=== PATIENT | female | born 1965 | race African-American/Black ===

== ENCOUNTER 2020-09-16 11:14 | Outpatient (REF) | payer OTHER, SELFPAY ==
--- NOTE | ~2020-09-16 | XR_ITS ---
EXAMINATION: BILATERAL KNEES CLINICAL INFORMATION: Bilateral knee pain COMPARISON: There are no prior studies for comparison. TECHNIQUE: AP weightbearing and lateral and sunrise views of each knee are obtained. FINDINGS: Mineralization is normal. There is no fracture or dislocation. The right knee joint spaces appear preserved. There is mild narrowing of the medial compartment in the left knee. No significant arthritic change is appreciated. There is evidence of a left knee joint effusion. The soft tissues appear otherwise unremarkable. XR/XR knee LT 2V IMPRESSION: No fracture or dislocation in either knee. Mild joint space narrowing in the medial compartment of the left knee without associated arthritic change. Large left knee joint effusion. Clinical correlation is recommended. MRI could be considered for further evaluation if there is evidence of internal derangement.
--- NOTE | ~2020-09-16 | XR_ITS ---
EXAMINATION: BILATERAL KNEES CLINICAL INFORMATION: Bilateral knee pain COMPARISON: There are no prior studies for comparison. TECHNIQUE: AP weightbearing and lateral and sunrise views of each knee are obtained. FINDINGS: Mineralization is normal. There is no fracture or dislocation. The right knee joint spaces appear preserved. There is mild narrowing of the medial compartment in the left knee. No significant arthritic change is appreciated. There is evidence of a left knee joint effusion. The soft tissues appear otherwise unremarkable. XR/XR knee RT 2V IMPRESSION: No fracture or dislocation in either knee. Mild joint space narrowing in the medial compartment of the left knee without associated arthritic change. Large left knee joint effusion. Clinical correlation is recommended. MRI could be considered for further evaluation if there is evidence of internal derangement.
--- NOTE | ~2020-09-16 | XR_ITS ---
EXAMINATION: BILATERAL KNEES CLINICAL INFORMATION: Bilateral knee pain COMPARISON: There are no prior studies for comparison. TECHNIQUE: AP weightbearing and lateral and sunrise views of each knee are obtained. FINDINGS: Mineralization is normal. There is no fracture or dislocation. The right knee joint spaces appear preserved. There is mild narrowing of the medial compartment in the left knee. No significant arthritic change is appreciated. There is evidence of a left knee joint effusion. The soft tissues appear otherwise unremarkable. XR/XR knee standing BI IMPRESSION: No fracture or dislocation in either knee. Mild joint space narrowing in the medial compartment of the left knee without associated arthritic change. Large left knee joint effusion. Clinical correlation is recommended. MRI could be considered for further evaluation if there is evidence of internal derangement.
== END 2020-09-16 11:15 | disposition home or self-care (01) ==
LOC: HO.HOSX 11:14
PROVIDERS: PCP Family Medicine; Visit Provider Orthopaedic Surgery
DX: M25.561 Pain in right knee (principal); M25.562 Pain in left knee
CPT/HCPCS: 20610; 73560; 73565; J1100

== ENCOUNTER 2020-11-04 13:51 | Outpatient (REF) | payer OTHER, SELFPAY ==
--- NOTE | ~2020-11-04 | MR_ITS ---
EXAMINATION: MR KNEE WITHOUT CONTRAST, LEFT, LIMITED CLINICAL INDICATION: Knee pain and swelling. COMPARISON: Radiographs dated 09/16/2020 TECHNIQUE: MR images of the knee were obtained on a 1.5 Germaine high-field scanner without intravenous contrast material. The patient was claustrophobic and could not complete the examination. A single diagnostic set of axial images was obtained. The sagittal [id number] images are nondiagnostic. MR/MR knee LT wo con FINDINGS/IMPRESSION: Limited study which was terminated prior to completion by the patient due to claustrophobia. Consider reattempting this study with a prescription for anxiolytic medications. Limited axial images demonstrate diffuse synovitis throughout the joint. Recommend correlation for a history of inflammatory arthropathy. Lyme arthropathy is also on the differential. Ligaments are grossly intact, though sensitivity for injuries is limited. The menisci are not well assessed. No acute osseous findings. Tricompartmental osteoarthritis is noted.
== END 2020-11-04 13:52 | disposition home or self-care (01) ==
LOC: HO.MRI 13:51
PROVIDERS: PCP Student in an Organized Health Care Education/Training Program; Visit Provider Physician Assistant
DX: M25.462 Effusion, left knee (principal)
CPT/HCPCS: 73721

== ENCOUNTER → 2020-11-07 14:02 | Outpatient (BNVA) | payer OTHER, SELFPAY | PROVIDERS: PCP Student in an Organized Health Care Education/Training Program; Visit Provider Physician Assistant | DX: M17.0 Bilateral primary osteoarthritis of knee (principal) | CPT/HCPCS: 20610; J1040 ==

== ENCOUNTER → 2021-01-16 09:17 | Outpatient (BNVA) | payer OTHER, SELFPAY | PROVIDERS: PCP Student in an Organized Health Care Education/Training Program; Visit Provider Orthopaedic Surgery ==

== ENCOUNTER 2021-04-03 13:46 | Outpatient (REF) | payer OTHER, SELFPAY ==
[2021-04-07 10:52] LABS: Lyme PCR Source SYNOVIAL FLUID
== END 2021-04-03 13:47 | disposition home or self-care (01) ==
LOC: HO.LNP 13:46
PROVIDERS: PCP Student in an Organized Health Care Education/Training Program; Visit Provider Orthopaedic Surgery
DX: M25.462 Effusion, left knee (principal)
CPT/HCPCS: 20610; 87476; J1100

== ENCOUNTER 2021-07-17 08:00 | Outpatient (REF) | payer OTHER, SELFPAY ==
[2021-07-18 08:04] LABS: MN% 33.6 %; PMN% 66.4 %; RBC Synovial Fluid 0.005 X10*6/uL; WBC Synovial Fluid 7.068 X10*3/uL
[2021-07-18 08:23] LABS: BF Shift QC OK YES; Lymphocytes Synovial Fluid 16 %; Monocytes Synovial Fluid 7 %; Neutrophils Synovial Fluid 77 %
== END 2021-07-17 08:01 | disposition home or self-care (01) ==
LOC: HO.LNP 08:00
PROVIDERS: Visit Provider Orthopaedic Surgery
DX: M25.462 Effusion, left knee (principal)
CPT/HCPCS: 89051; 89060

== ENCOUNTER 2021-07-17 09:03 | Outpatient (REF) | payer OTHER, SELFPAY ==
--- NOTE | ~2021-07-17 | XR_ITS ---
EXAMINATION: XR KNEE AP STANDING XR KNEE, LEFT CLINICAL INFORMATION: Pain. COMPARISON: MRI left knee dated 11/05/2020; bilateral knee radiographs dated 07/17/2020. TECHNIQUE: AP bilateral standing view of the knees was obtained. A lateral view of the left knee was obtained. FINDINGS: Bony mineralization is normal. There are circumscribed, benign-appearing cysts seen within the bilateral medial femoral condyles. A small sclerotic, well marginated bone island is seen within the proximal left tibia. There is mild symmetric narrowing of the lateral and medial joint space compartments of the left knee, with small peripheral osteophytes. The left patellofemoral compartment is well-maintained. There is a moderately large left knee joint effusion. The lateral and medial joint space compartments of the right knee are well-maintained. There is mild peripheral osteophyte formation of the medial joint space compartment of the right knee. XR/XR knee LT 1V IMPRESSION: 1. No fracture or dislocation is seen bilaterally. 2. There is a moderately large left knee joint effusion. 3. There is mild to moderate osteoarthritic change of the lateral medial joint space compartments of the left knee. 4. There is very mild osteoarthritic change of the medial joint space compartment of the right knee.
--- NOTE | ~2021-07-17 | XR_ITS ---
EXAMINATION: XR KNEE AP STANDING XR KNEE, LEFT CLINICAL INFORMATION: Pain. COMPARISON: MRI left knee dated 11/05/2020; bilateral knee radiographs dated 07/17/2020. TECHNIQUE: AP bilateral standing view of the knees was obtained. A lateral view of the left knee was obtained. FINDINGS: Bony mineralization is normal. There are circumscribed, benign-appearing cysts seen within the bilateral medial femoral condyles. A small sclerotic, well marginated bone island is seen within the proximal left tibia. There is mild symmetric narrowing of the lateral and medial joint space compartments of the left knee, with small peripheral osteophytes. The left patellofemoral compartment is well-maintained. There is a moderately large left knee joint effusion. The lateral and medial joint space compartments of the right knee are well-maintained. There is mild peripheral osteophyte formation of the medial joint space compartment of the right knee. XR/XR knee standing BI IMPRESSION: 1. No fracture or dislocation is seen bilaterally. 2. There is a moderately large left knee joint effusion. 3. There is mild to moderate osteoarthritic change of the lateral medial joint space compartments of the left knee. 4. There is very mild osteoarthritic change of the medial joint space compartment of the right knee.
== END 2021-07-17 09:04 | disposition home or self-care (01) ==
LOC: HO.HOSX 09:03
PROVIDERS: Visit Provider Orthopaedic Surgery
DX: M25.562 Pain in left knee (principal); M25.461 Effusion, right knee; M25.462 Effusion, left knee; M06.9 Rheumatoid arthritis, unspecified
CPT/HCPCS: 20610; 73560; 73565; J1100

== ENCOUNTER 2021-07-24 09:55 | Outpatient (REF) | payer OTHER, SELFPAY | END 2021-07-24 09:56 | disposition home or self-care (01) | LOC: CF 09:55 | PROVIDERS: PCP Family Medicine; Visit Provider Internal Medicine Rheumatology | DX: Z13.89 Encounter for screening for other disorder (principal) ==

== ENCOUNTER 2022-07-06 10:51 | Outpatient (REF) | payer OTHER, SELFPAY ==
[2022-07-06 12:38] LABS: MANUAL DIFF FLAG NO
[2022-07-06 13:15] LABS: Basophils Percent Auto 0.5 % (0-2); Eosinophils Absolute Auto 0.1 X10*3/uL (0.0-0.4); Eosinophils Percent Auto 2.3 % (0-4); Hematocrit 28.8 % (37.0-47.0); Hemoglobin 8.6 g/dl (12.0-16.0); Imm Gran Abs Auto 0.04 X10*3/uL (0.00-0.03); Imm Gran Pct Auto 0.7 % (0.0-0.4); Lymphocytes Absolute Auto 1.5 X10*3/uL (1.2-4.9); Lymphocytes Percent Auto 24.3 % (20-40); Mean Corpuscular HGB Conc 29.9 g/dl (31.0-35.0); Mean Corpuscular Hemoglobin 26.4 pg (27.0-33.0); Mean Corpuscular Volume 88.3 fL (80.0-98.0); Mean Platelet Volume 10.5 fL (9.4-12.3); Monocytes Absolute Auto 0.4 X10*3/uL (0.1-1.2); Monocytes Percent Auto 6.3 % (2-11); Neutrophils Percent Auto 65.9 % (45-73); Platelet Count 404 X10*3/uL (160-400); Red Blood Count 3.26 X10*6/uL (4.20-5.50); Red Cell Distribution Width 15.9 % (11.0-16.0)
[2022-07-06 13:50] LABS: Alanine Aminotransferase 6 U/L (0-31); Albumin Level 3.8 g/dL (3.5-5.0); Alkaline Phosphatase 109 U/L (39-117); Anion Gap 17 (12-20); Aspartate Amino Transferase 10 U/L (5-31); Bilirubin Total 0.5 mg/dL (0.0-1.0); Blood Urea Nitrogen 44 mg/dL (9-16); C Reactive Protein 10.03 mg/dL (< or = 0.50); Carbon Dioxide 18 mmol/L (22-29); Chloride 109 mmol/L (96-108); Estimated Glomerular Filt Rate 9; Glucose Random 99 mg/dL (60-115); Potassium 5.1 mmol/L (3.3-5.1); Sodium 139 mmol/L (135-145); Total Protein 7.9 g/dL (6.5-8.0)
[2022-07-06 14:00] LABS: Erythrocyte Sedimentation Rate 92 MM/HR (0-20)
[2022-07-08 04:23] LABS: HBS Num1 0.69 mIU/mL (0-7.99); HBc Num1 0.15 S/CO (0.00-0.79); HBsAGNum1 0.27 S/CO (0.00-0.99); Hepatitis A Antibody IgM 0.18 Index (0-0.79); Hepatitis B Core Antibody Nonreactive (Nonreactive); Hepatitis B Surface Antigen Negative (Negative); ~HepC Num1 0.18 S/CO (0.00-0.79); ~Hepatitis A Antibody IgM Nonreactive (Nonreactive); ~Hepatitis B Surface Antibody NONREACTIVE (Nonreactive); ~Hepatitis C Antibody Nonreactive (Nonreactive)
[2022-07-09 12:03] LABS: TS Negative Control Passed; TS Panel A 1; TS Panel B 0; TS Positive Control Passed; TSpotTB Negative (Negative)
== END 2022-07-06 10:52 | disposition home or self-care (01) ==
LOC: HO.LAB 10:51
PROVIDERS: PCP Family Medicine; Visit Provider Internal Medicine Rheumatology
DX: M17.5 Other unilateral secondary osteoarthritis of knee (principal); N18.5 Chronic kidney disease, stage 5; M06.9 Rheumatoid arthritis, unspecified; Z79.899 Other long term (current) drug therapy
CPT/HCPCS: 36415; 80053; 85025; 85652; 86140; 86481; 86704; 86706; 86709; 86803; 87340

== ENCOUNTER 2022-11-09 14:06 | Outpatient (AMB) | payer OTHER, SELFPAY ==
[2022-11-09 14:07] VITALS: BP 124/76; TEMP 36.6; BMI 30.2
--- NOTE | 2022-11-09 14:07 | A.OFFVIS_ITS ---
Intake Vital Signs 11/09/22 14:07 Height 5 ft 4 in Weight 175 lb 11.335 oz BMI 30.2 BP 124/76 Blood Pressure Location Lt brachial Position Sitting Temp 97.9 F Temp Source Temporal Artery Scan Intake Visit Reasons: Rheumatoid Arthritis - LVM Intake Note: Pt presents is here for a f/u for a medication she has been taking. She reports the medication is not helping but making things worse as she is now experiencing muscle spasms. Pt uis looking to get a script to refill her 650 mg acetaminophen and the Vitamin D3. Allergies acetaminophen [From Percocet] Adverse Reaction (Verified 11/09/22 14:14) unk azithromycin [From Zithromax] Adverse Reaction (Verified 11/09/22 14:14) unk cephalexin Adverse Reaction (Verified 11/09/22 14:14) unk levofloxacin [From Levaquin] Adverse Reaction (Verified 11/09/22 14:14) unk lisinopril Adverse Reaction (Verified 11/09/22 14:14) unk meperidine [From Demerol] Adverse Reaction (Verified 11/09/22 14:14) unk nitrofurantoin [From Macrobid] Adverse Reaction (Verified 11/09/22 14:14) unk oxycodone [From Percocet] Adverse Reaction (Verified 11/09/22 14:14) unk Penicillins Adverse Reaction (Verified 11/09/22 14:14) unk Sulfa (Sulfonamide Antibiotics) Adverse Reaction (Verified 11/09/22 14:14) unk Medication List - Last Reconciled 11/09/22 by Ramirez Jessica MD acetaminophen ER 650 mg PO Q8H PRN adalimumab (Humira(CF) Pen) 40 mg (0.4 mL) subcut Q2W 56 days amlodipine 5 mg PO DAILY cholecalciferol (vitamin D3) 50 mcg PO DAILY fluticasone propionate 50 mcg/actuation 1 spray intranasal DAILY PRN labetalol 300 mg PO BID lidocaine 5% 1 topical BID PRN loratadine 10 mg PO DAILY PRN omeprazole 20 mg PO BID sodium bicarbonate 1,300 mg PO BID HPI HPI Comments History of Present Illness Details The patient returns today for evaluation of her rheumatoid arthritis and osteoarthritis. We were able to get approval and she has been on Humira 40 mg every 2 weeks since June. Initially she does not really describe much pain outside of her knees. She does note pain in those joints but she seems to tolerate it better than the knee pain. She said a significant problem with the left knee. Some days she can barely stand up. She still is working although she has missed work because of the problems with walking. 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 She has to take the stairs to do that. She brings in FMLA form today. She also has severe kidney failure. She has not seen nephrology recently. She is on still some blood pressure medicines. She was in the ER on September 26 with some diarrhea and some lab work was done. She had decided against early placement of an AV fistula. She has been experiencing painful muscle spasm particularly in the left leg. This is over the thigh region. This is surrounding the joint of course that gives her the most problem with walking. 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 Negative for weight change, fever, chills, malaise and fatigue Eyes Details: Negative for vision change, dry eyes,headaches and dizziness ENT Details: Negative for hearing change, tinnitus, oral ulcer, nose bleeds and oral dryness. Card Details: Negative chest pain, edema and syncope Resp Details: Negative for SOB, cough and wheezing GI Details: Negative indigestion/heartburn, nausea, abdominal pain, bowel changes, diarrhea, constipation and bloody stool. Brodie/Lymph Details: Negative for excessive bruising or bleeding. Physical Exam Vital Signs: Last Vital Signs Temp 97.9 F 11/09/22 14:07 BP 124/76 11/09/22 14:07 BMI result Body Mass Index 30.2 APPEARANCE: Patient in no acute distress EYES no redness, pupils equal and reactive to light, eyelids normal EXTREMITIES: No edema, no calf tenderness, normal peripheral pulses. JOINT EXAM: Cervical Spine:? Full range of motion without pain; no tenderness. Thoracic Spine:.? No scoliosis.? No tenderness on palpation. Lumbar Spine:.? Alignment normal.? Full range of motion without pain, no tenderness. Chest Wall:.? No tenderness, swelling, increased warmth or erythema. Hands:? Right:? There is mild soft tissue swelling and mild to moderate tenderness across? all the MCP joints.? ? There is some thickening of the 2nd through 4th PIP joints and the 3rd PIP has mild tenderness.? There is no redness or warmth.? There was no flexor tendon triggering, thenar atrophy or sensory loss.? Left:? Mild swelling? in tenderness across the 1st 3 MCP joints.? There is slight tenderness and thickening of the 2nd and 3rd PIP joints.? There is no thenar atrophy, sensory loss or flexor tendon triggering or tenderness. Wrists:.? Right: Mild pain with flexion extension at 45 degrees.? There is some mild tenderness and mild swelling but no increased warmth or erythema. Left: There is mild pain with flexion extension at 30 degrees with some swelling and mild tenderness. Elbows:? Right:? She lacks about 15 degrees of full extension there is some slight swelling and mild tenderness over the joint space.? Left: Mild pain at the extremes of motion with mild tenderness but no swelling. Shoulders:.?? right: Mild pain with abduction 135 degrees or with more than 20 degrees of internal or external rotation.? Mild anterior tenderness without swelling or adenopathy.? Left:? Mild to moderate pain with abduction at 90 degrees or with any attempted internal or external rotation.? Mild anterior, subacromial posterior tenderness without swelling.? No axillary or supraclavicular adenopathy. Hips:? Right:? Slight buttock and lateral discomfort with extremes of external rotation and abduction but no groin pain with motion.? Left:? Full range of motion without pain. Hip bursa:.? No tenderness. Knees:? Right:? Moderate pain with flexion beyond 60 degrees or attempts at full extension.? There is a small to moderate effusion present with medial and lateral tenderness but no redness or warmth.? Left:? Mild to moderate pain with flexion at 90 degrees or attempts at full extension.? There is a small effusion evident with mild medial and lateral tenderness without increased warmth or erythema. Ankles: Right:? Mild to moderate pain with AP motion and moderate pain with any attempted inversion or eversion.? There is some soft tissue swelling and moderate tenderness.? No redness or warmth.? Left:? ? Mild pain with extremes of motion and some mild medial lateral tenderness no swelling, increased warmth or erythema. Feet:? Right:? Normal pain-free range of motion with mild tenderness across the 1st 3 MTP joints.? No swelling evident however.? In the instep and toes there is? slight tenderness but no swelling, increased warmth or erythema.? Left:?? mild tenderness in the 1st and 2nd MTP joints without swelling. mild tenderness without swelling in the instep.? No swelling in the toes.. Tender points:? No tenderness to digital palpation at the occiput, trapezius, second rib, lateral epicondyle, knees,? ?? Results Reviewed Results Reviewed: Laboratory Tests 07/06/22 07/06/22 07/06/22 12:37 12:37 12:37 WBC 6.0 Hgb 8.6 L ESR 92 H Creatinine 4.81 H* C-Reactive Protein 10.03 H September 26 lab work from [facility] ER: Hemoglobin 8.4, hematocrit 27.4, white count 6.9, creatinine 5.9, estimated GFR 8, sodium 132, potassium 4.2, bicarbonate 17 Assessment & Plan Assessment & Plan (1) Osteoarthritis of right knee: Code(s): M17.11 - Unilateral primary osteoarthritis, right knee Qualifiers: Osteoarthritis type: other secondary Qualified Code(s): M17.5 - Other unilateral secondary osteoarthritis of knee (2) Osteoarthritis of left knee: Code(s): M17.12 - Unilateral primary osteoarthritis, left knee Qualifiers: Osteoarthritis type: other secondary Qualified Code(s): M17.5 - Other unilateral secondary osteoarthritis of knee (3) CKD (chronic kidney disease) stage 5, GFR less than 15 ml/min: Comment: Thought to be secondary to chronic NSAID use and or hypertension. Code(s): N18.5 - Chronic kidney disease, stage 5 (4) Rheumatoid arthritis: Comment: ELBA, RF and CCP(>250) positive - onset-2018? not showing up for follow-up Code(s): M06.9 - Rheumatoid arthritis, unspecified Plan Rheumatoid arthritis with still some significant inflammatory activity. There may be a bit less inflammation noted in her hands. I discussed with her the possibility of adding hydroxychloroquine to her regimen. We reviewed potential side effects of that medication - I gave her some information that to review. Other more immunosuppressive drugs I think would be problematic given her severe CKD. Use of drugs that would be metabolize in the kidney would also be a difficult path to pursue. Additionally there is end-stage osteoarthritis particularly in the left knee. It is that left knee pain that has become quite disabling for her. She has significant kidney disease, stage 5, and so far has not wanted to follow through with recommendations for placement of an AV fistula. She is having intermittent cramping in the left thigh, likely related to fatigue because of the difficulty with standing up on that leg. I issued her a prescription for a cane today. Some of the problem with muscle spasm in this leg could be related to her kidney disease. Were it not for her kidney failure she at this point would be offered a knee replacement. Until we get the renal situation stabilized that would be hard to arrange. She also has a significant anemia, likely related to her CKD. I encouraged her to follow through with the visit in Nephrology, perhaps they could start some erythropoietin for the anemia and convince her to follow through with plans for an AV fistula. I filled out her FMLA form. This indicates she would be possibly out every week for 1-2 days. She would may also need to follow-up with renal and perhaps pursue placement of the fistula and subsequent follow-up for that. Review of her chart at [facility], today's history, her exam, discussion of treatment options and filling out her FMLA form took 46 minutes. I will see her back in about 3 months. For now she will stay on the Humira. Orders: Orders C Reactive Protein Today M06.9 - Rheumatoid arthritis, unspecified, N18.5 - Chronic kidney disease, stage 5 Complete Blood Count Auto Diff Today M06.9 - Rheumatoid arthritis, unspecified, N18.5 - Chronic kidney disease, stage 5 Erythrocyte Sedimentation Rate Today M06.9 - Rheumatoid arthritis, unspecified, N18.5 - Chronic kidney disease, stage 5 Medications: New cane As directed 1 ea 0RF M06.9 - Rheumatoid arthritis, unspecified Coding Level of Care Code Est Pt Level 5 (27243) Diagnoses Osteoarthritis of right knee M17.5 Osteoarthritis type: other secondary Osteoarthritis of left knee M17.5 Osteoarthritis type: other secondary CKD (chronic kidney disease) stage 5, GFR less than 15 ml/min N18.5 Rheumatoid arthritis M06.9
== END 2022-11-09 15:08 | disposition home or self-care (01) ==
PROVIDERS: PCP Family Medicine; Visit Provider Internal Medicine Rheumatology
DX: M17.5 Other unilateral secondary osteoarthritis of knee (principal); N18.5 Chronic kidney disease, stage 5; M06.9 Rheumatoid arthritis, unspecified
CPT/HCPCS: 99215

== ENCOUNTER → 2022-11-09 14:06 | Outpatient (BNVA) | payer OTHER, SELFPAY | PROVIDERS: PCP Family Medicine; Visit Provider Internal Medicine Rheumatology ==

== ENCOUNTER 2023-02-15 15:14 | Outpatient (AMB) | payer OTHER, SELFPAY ==
--- NOTE | 2023-02-15 15:35 | MHC.OFFVIS ---
Intake Vital Signs 02/15/23 15:36 Height 5 ft 4 in Weight 166 lb 7.184 oz BMI 28.6 BP 132/90 H Blood Pressure Location Rt brachial Position Sitting Respiration 18 Pulse 88 Pulse Source Palpation Intake Visit Reasons: Pain on both of her knees Intake Note: Patient presents to office today for rosario knee pain x 2 wks. Patient is very unsteady when walking. Would like to have cortisone injection. Would like to discuss infusion treatment (Rituximab ?). Daughter with same dx would get monthly infusions that helped a lot. Director Of Cardiac Rehabilitation Required: No Accompanied by: Sister Allergies acetaminophen [From Percocet] Adverse Reaction (Verified 02/15/23 15:39) unk azithromycin [From Zithromax] Adverse Reaction (Verified 02/15/23 15:39) unk cephalexin Adverse Reaction (Verified 02/15/23 15:39) unk levofloxacin [From Levaquin] Adverse Reaction (Verified 02/15/23 15:39) unk lisinopril Adverse Reaction (Verified 02/15/23 15:39) unk meperidine [From Demerol] Adverse Reaction (Verified 02/15/23 15:39) unk nitrofurantoin [From Macrobid] Adverse Reaction (Verified 02/15/23 15:39) unk oxycodone [From Percocet] Adverse Reaction (Verified 02/15/23 15:39) unk Penicillins Adverse Reaction (Verified 02/15/23 15:39) unk Sulfa (Sulfonamide Antibiotics) Adverse Reaction (Verified 02/15/23 15:39) unk Medication List - Last Reconciled 02/15/23 by Ramirez Jessica MD acetaminophen ER 650 mg PO Q8H PRN amlodipine 5 mg PO DAILY cane As directed cholecalciferol (vitamin D3) 50 mcg PO DAILY fluticasone propionate 50 mcg/actuation 1 spray intranasal DAILY PRN labetalol 300 mg PO BID lidocaine 5% 1 topical BID PRN loratadine 10 mg PO DAILY PRN omeprazole 20 mg PO BID HPI HPI Comments History of Present Illness Details The patient returns for evaluation of her rheumatoid arthritis. She was last here in October. We had started the Humira and she had about 3 doses at the time. There was no obvious improvement but she was walking. Apparently in November she felt that she was losing hair because of the Humira so she decided to stop it. She did not call the office. Now for the past 3 weeks she has had severe pain in the knees, particularly the left knee. There was no recent injury. She does still try to work, often missing because of the knee pain. She has not had a renal visit to assess her CKD recently. She does have a follow-up planned in the next few weeks with Nephrology. She does take acetaminophen for her pains with questionable benefit. She had been offered the placement of an AV fistula to manage her CKD but had declined at the time. She has some help at home with her sister who brought her in today. 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 Negative for appetite change, weight change, fever, chills, malaise Eyes Details: Negative for vision change, dry eyes,headaches and dizziness ENT Details: Negative for hearing change, tinnitus, oral ulcer, nose bleeds and oral dryness. Card Details: Negative chest pain, edema and syncope Resp Details: Negative for SOB, cough and wheezing GI Details: Negative indigestion/heartburn, nausea, abdominal pain, bowel changes, diarrhea, constipation and bloody stool. Skin/Breast Details: She thinks she has had some hair loss, discovered by relatively was rating her hair. No scalp rash was noted. Negative for itching, rash, hives, Raynaud's symptoms, sun sensitivity, and skin cancer Psych Details: Negative for anxiety, depression and stress Brodie/Lymph Details: Negative for excessive bruising or bleeding. Physical Exam Vital Signs: Last Vital Signs Pulse 88 02/15/23 15:36 Resp 18 02/15/23 15:36 BP 132/90 H 02/15/23 15:36 BMI result Body Mass Index 28.6 APPEARANCE: Patient in no acute distress EYES no redness, pupils equal and reactive to light, eyelids normal EXTREMITIES: No edema, no calf tenderness, normal peripheral pulses. NEURO: Oriented and alert x3. No focal weakness. Reflexes symmetric. Gait normal. SKIN: There is some thinning of the hair mostly in the temporal regions. I do not see any skin rashes or skin lesions on the scalp. Other areas have no inflammatory or neoplastic lesions. JOINT EXAM: ?? Cervical Spine:? Full range of motion without pain; no tenderness. Thoracic Spine:.? No scoliosis.? No tenderness on palpation. Lumbar Spine:.? Alignment normal.? Full range of motion without pain, no tenderness. Chest Wall:.? No tenderness, swelling, increased warmth or erythema. Hands:? Right:? There is mild soft tissue swelling of the 1st 3 MCP joints. There is slight tenderness at the 2nd and 3rd MCP joints.? ? There is some thickening of the 2nd through 4th PIP joints with no tenderness.? There is no redness or warmth.? There was no flexor tendon triggering, thenar atrophy or sensory loss.? Left:? Mild swelling? in tenderness across the 1st 3 MCP joints.? There is slight tenderness and thickening of the 2nd and 3rd PIP joints.? There is no thenar atrophy, sensory loss or flexor tendon triggering or tenderness. Wrists:.? Right: Mild pain with flexion extension at 45 degrees or extension at 30 degrees.? There is some mild tenderness and mild swelling but no increased warmth or erythema. Left: There is mild pain with flexion extension at 45 degrees with some swelling and mild tenderness. Elbows:? Right:? She lacks about 15 degrees of full extension there is some slight swelling and mild tenderness over the joint space.? Left: She lacks about 20 degrees of full extension. There is mild pain at attempts at full extension or flexion beyond 90 degrees. There is some thickening over the joint space and mild tenderness. Shoulders:.?? right: Mild pain with abduction 150 degrees or with more than 20 degrees of internal or external rotation.? Mild anterior tenderness without swelling or adenopathy.? Left:? Mild to moderate pain with abduction at 90 degrees or with any attempted internal or external rotation.? Mild anterior, subacromial posterior tenderness without swelling.? No axillary or supraclavicular adenopathy. Hips:? Right:? Slight buttock and lateral discomfort with extremes of external rotation and abduction but no groin pain with motion.? Left:? Full range of motion without pain. Hip bursa:.? No tenderness. Knees:? Right:? Moderate pain with flexion beyond 60 degrees or attempts at full extension.? There is a small to moderate effusion present with medial and lateral tenderness but no redness or warmth.? Left:? Moderate to severe pain with more than 45 degrees flexion or extension. There is a small effusion with mild to moderate medial lateral tenderness without redness or warmth. Ankles: Right:? Mild to moderate pain with AP motion and mild pain with any attempted inversion or eversion.? There is some soft tissue swelling and moderate tenderness.? No redness or warmth.? Left:? ? Mild pain with extremes of motion and some mild medial lateral tenderness no swelling, increased warmth or erythema. Feet:? Right:? Normal pain-free range of motion with mild tenderness across the 1st 3 MTP joints.? No swelling evident however.? In the instep and toes there is? slight tenderness but no swelling, increased warmth or erythema.? Left:?? mild tenderness in the 1st and 2nd MTP joints without swelling. mild tenderness without swelling in the instep.? No swelling in the toes.. Office Procedures Joint Injection/Drain Joint Injection/Drain Primary Site: right knee Secondary Site: left knee Injected: 80 mg of, Kenalog, with 3 mL of and 1% plain lidocaine Coding 72911 - Large joint Procedure code (CPT) selection complete Results Reviewed Results Reviewed: Laboratory Tests 07/06/22 12:37 ESR 92 H BUN 44 H Creatinine 4.81 H* Estimated GFR 9 C-Reactive Protein 10.03 H Labs from [facility] at the ER 09/26/2022: Creatinine 5.9, GFR 8 Assessment & Plan Assessment & Plan (1) Long-term use of immunosuppressant medication: Code(s): Z79.899 - Other marine oil terminal 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 (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) drug therapy (2) Osteoarthritis of right knee: Code(s): M17.11 - Unilateral primary osteoarthritis, right knee Qualifiers: Osteoarthritis type: other secondary Qualified Code(s): M17.5 - Other unilateral secondary osteoarthritis of knee (3) Osteoarthritis of left knee: Code(s): M17.12 - Unilateral primary osteoarthritis, left knee Qualifiers: Osteoarthritis type: other secondary Qualified Code(s): M17.5 - Other unilateral secondary osteoarthritis of knee (4) CKD (chronic kidney disease) stage 5, GFR less than 15 ml/min: Comment: Thought to be secondary to chronic NSAID use and or hypertension. Code(s): N18.5 - Chronic kidney disease, stage 5 (5) Rheumatoid arthritis: Comment: ELBA, RF and CCP(>250) positive - onset-2019? not showing up for follow-up Code(s): M06.9 - Rheumatoid arthritis, unspecified Plan Rheumatoid arthritis with still active synovitis. She also has fairly end-stage osteoarthritis in the knees. I think her recent symptom of hair loss was likely due to CKD rather than the Humira. It was not apparent to her that the Humira was helping anyway. I told her she needed to be on a DMARD to see if we could salvage what was left of the joints and potentially try to avoid knee replacements in the future. She seems to agree and was willing to try Enbrel. I gave her some information on that drug to review we talked about potential side effects which are course quite similar to the Humira. We will pursue prior authorization of the Enbrel with her insurance. Because of her severe CKD I do not think she is candidate for methotrexate or hydroxychloroquine. In the short term she is requesting bilateral knee injections today. We reviewed potential side effects of such injections. With the patient's consent the right knee was prepped with ChloraPrep and alcohol. The skin was anesthetized with 2 cc of 1% lidocaine. The knee was then injected with 40 mg of triamcinolone and 1 cc of I % lidocaine. The patient tolerated the procedure with no immediate adverse effects. With the patient's consent the left knee was prepped with ChloraPrep and alcohol. The skin was anesthetized with 2 cc of 1% lidocaine. The knee was then injected with 40 mg of triamcinolone and 1 cc of I % lidocaine. The patient tolerated the procedure with no immediate adverse effects. She will rest the joints for a few days. I did give her a work note to be out until Wednesday. We will get back to her when we get approval on the Enbrel. Her significant CKD precludes the use of methotrexate. Hopefully she will get approval on the Enbrel and we will schedule a return visit at about 2 months seems reasonable. Review of her treatment options, review of her history, today's exam took 34 minutes. Orders: Orders AMB Joint Injection/Aspiration 02/15/23 M17.11 - Unilateral primary osteoarthritis, right knee, M17.12 - Unilateral primary osteoarthritis, left knee Coding Level of Care Code Est Pt Level 4 (76227) Diagnoses Long-term use of immunosuppressant medication Z79.899 Other secondary osteoarthritis of right knee M17.5 Osteoarthritis type: other secondary Other secondary osteoarthritis of left knee M17.5 Osteoarthritis type: other secondary CKD (chronic kidney disease) stage 5, GFR less than 15 ml/min N18.5 Rheumatoid arthritis M06.9 CPT Codes Coding - 81425 Large joint: 33126 - Large joint ([id number])
[2023-02-15 15:36] VITALS: BP 132/90; PULSE 88; RESP 18; BMI 28.6
== END 2023-02-15 16:45 | disposition home or self-care (01) ==
PROVIDERS: PCP Family Medicine; Visit Provider Internal Medicine Rheumatology
DX: M17.0 Bilateral primary osteoarthritis of knee (principal); Z79.899 Other long term (current) drug therapy; M06.9 Rheumatoid arthritis, unspecified; R76.8 Other specified abnormal immunological findings in serum; N18.5 Chronic kidney disease, stage 5
CPT/HCPCS: 20610; 99214

== ENCOUNTER → 2023-02-15 15:14 | Outpatient (BNVA) | payer OTHER, SELFPAY | PROVIDERS: PCP Family Medicine; Visit Provider Internal Medicine Rheumatology | DX: M17.5 Other unilateral secondary osteoarthritis of knee (principal); M06.9 Rheumatoid arthritis, unspecified; N18.5 Chronic kidney disease, stage 5; Z79.899 Other long term (current) drug therapy | CPT/HCPCS: 20610; J3301 ==

== ENCOUNTER 2023-05-26 10:32 | Outpatient (AMB) | payer OTHER, SELFPAY ==
--- NOTE | 2023-05-26 10:35 | MHC.OFFVIS ---
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 Required: No Accompanied by: Self / Same As Patient Allergies etanercept [From Enbrel] Allergy (Verified 05/26/23 10:42) Rash acetaminophen [From Percocet] Adverse Reaction (Verified 02/15/23 15:39) unk azithromycin [From Zithromax] Adverse Reaction (Verified 02/15/23 15:39) unk cephalexin Adverse Reaction (Verified 02/15/23 15:39) unk levofloxacin [From Levaquin] Adverse Reaction (Verified 02/15/23 15:39) unk lisinopril Adverse Reaction (Verified 02/15/23 15:39) unk meperidine [From Demerol] Adverse Reaction (Verified 02/15/23 15:39) unk nitrofurantoin [From Macrobid] Adverse Reaction (Verified 02/15/23 15:39) unk oxycodone [From Percocet] Adverse Reaction (Verified 02/15/23 15:39) unk Penicillins Adverse Reaction (Verified 02/15/23 15:39) unk Sulfa (Sulfonamide Antibiotics) Adverse Reaction (Verified 02/15/23 15:39) unk Medication List - Last Reconciled 05/26/23 by Clari Ellington MD acetaminophen ER 650 mg PO Q8H PRN amlodipine 5 mg PO DAILY cane As directed cholecalciferol (vitamin D3) 50 mcg PO DAILY diclofenac sodium 3% 1 appl topical BID Enbrel SureClick (etanercept) 50 mg subcut QWEEK NS fluticasone propionate 50 mcg/actuation 1 spray intranasal DAILY PRN labetalol 300 mg PO BID loratadine 10 mg PO DAILY PRN omeprazole 20 mg PO BID HPI HPI Comments History of Present Illness Details 57-year-old female with seropositive rheumatoid arthritis returns for follow-up. Patient states that she took Enbrel for 3 weeks. She stopped it due to development of GI upset and acid reflux as well as a few days of a rash on her left upper chest. Patient is in severe pain mostly because of her left knee pain and swelling as well as her right knee pain. She can barely walk. Steroid injections done by Dr. Jessica last visit provided a few weeks relief. States that she is attending lessons for peritoneal dialysis currently. She states that she will have a kidney donor Most recent history by Dr. Jessica 01/2023: The patient returns for evaluation of her rheumatoid arthritis. She was last here in October. We had started the Humira and she had about 3 doses at the time. There was no obvious improvement but she was walking. Apparently in November she felt that she was losing hair because of the Humira so she decided to stop it. She did not call the office. Now for the past 3 weeks she has had severe pain in the knees, particularly the left knee. There was no recent injury. She does still try to work, often missing because of the knee pain. She has not had a renal visit to assess her CKD recently. She does have a follow-up planned in the next few weeks with Nephrology. She does take acetaminophen for her pains with questionable benefit. She had been offered the placement of an AV fistula to manage her CKD but had declined at the time. She has some help at home with her sister who brought her in today. 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 Review of Systems [facility] Reports abnormal gait, Reports arthralgias, Reports joint swelling, Reports limited range of motion and Reports stiffness Neuro Reports abnormal gait Physical Exam Vital Signs: Last Vital Signs Temp 98.2 F 05/26/23 10:36 Pulse 92 05/26/23 10:36 BP 132/78 05/26/23 10:36 Pulse Ox 98 01/31/24 10:36 Oxygen Delivery Method Room Air 05/26/23 10:36 BMI result Body Mass Index 27.1 Const General: cooperative, in distress mild and tired appearing Orientation/consciousness: patient oriented x3 Limitations: ambulation with cane HEENT Head: Yes normocephalic and Yes atraumatic Mouth: moist mucous membranes Resp Effort & Inspection: normal respiratory effort and able to speak in complete sentences Auscultation: clear to auscultation bilaterally Cardio Rate: regular rate Rhythm: regular rhythm Skin Other: Some pallor Neuro General: patient oriented x3 Extrem Other: Diffuse synovitis. Bilateral wrist swelling and tenderness, pain with flexion-extension Bilateral diffuse MCP swelling and tenderness Multiple PIP tenderness bilaterally Right elbow contracture, patient can not extend both elbows fully Normal range of motion of shoulders Bilateral knee swelling warmth and tenderness, pain with any range of motion Bilateral ankle swelling without much tenderness Normal nailfold capillaroscopy Office Procedures Joint Injection/Drain Joint Injection/Drain Primary Site: right knee Secondary Site: left knee Prep: site was prepped using sterile technique and ethochloride spray was applied Injected: 40 mg of, Kenalog and other (2 mL of 1% lidocaine) Approach Used: medial parapatellar Procedure: The patient tolerated the procedure well and but had some pain with the injection Coding Details: With the patient's consent the left knee was prepped with ChloraPrep and alcohol. The skin was anesthetized with 2 cc of 1% lidocaine. The knee was then injected with 40 mg of triamcinolone and 2 cc of I % lidocaine. The patient tolerated the procedure with no immediate adverse effects. With the patient's consent the right knee was prepped with ChloraPrep and alcohol. The skin was anesthetized with 2 cc of 1% lidocaine. The knee was then injected with 40 mg of triamcinolone and 2 cc of I % lidocaine. The patient tolerated the procedure with no immediate adverse effects. - Large joint Procedure code (CPT) selection complete (Large joint x2) Assessment & Plan Assessment & Plan (1) Rheumatoid arthritis: Comment: ELBA+ RF+ CCP+++ - onset-2018? Noncompliance with follow-up 06/2022 Humira started; patient stopped - hair thinning 02/2023: Enbrel Code(s): M06.9 - Rheumatoid arthritis, unspecified Plan: This is a 57-year-old female with seropositive erosive RA who presents for follow-up. Patient took Enbrel for 3 doses then stopped, stated that she had GI upset and can rash on upper chest. Upon evaluation. Those side effects seem less likely to be related to Enbrel. Advised patient to retry the Enbrel and let us know if she develops any side effects. Take any pictures of skin rashes. She has diffuse synovitis on exam. She has significant bilateral knee effusions, both were injected today. I do not believe patient has septic arthritis, she does not have a fever and she has poly arthritis. Patient's rheumatoid arthritis is poorly controlled. Discussed different complications of poorly-controlled rheumatoid arthritis including joint damage, progressive deformities, tendon rupture, progressive arthritis, increased cardiovascular events. I urged compliance. 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 Letter was given to employer and FMLA was completed. Labs before next visit in 3 months (2) Long-term use of immunosuppressant medication: Code(s): Z79.899 - Other shelter (current) drug therapy Plan: Advised patient to call the clinic if she develops any signs of fever or an infection Plan I spent 60 minutes reviewing patient's chart, evaluating patient, ordering diagnostic workup, completing FMLA paperwork, counseling patient and documenting in the chart Orders: Orders Complete Blood Count Auto Diff 3 Months M06.9 - Rheumatoid arthritis, unspecified Erythrocyte Sedimentation Rate 3 Months M06.9 - Rheumatoid arthritis, unspecified Rheumatoid Factor 2 Months M06.9 - Rheumatoid arthritis, unspecified Cyclic Citrullinated Peptide 2 Months M06.9 - Rheumatoid arthritis, unspecified ELBA Reflex Titer and Pattern 3 Months M32.9 - Systemic lupus erythematosus, unspecified Anti Extractable Nuclear Ag 3 Months M32.9 - Systemic lupus erythematosus, unspecified Complement C4 3 Months M32.9 - Systemic lupus erythematosus, unspecified Protein Creatinine Ratio, Ur 3 Months M32.9 - Systemic lupus erythematosus, unspecified UA w Microscopic 3 Months M32.9 - Systemic lupus erythematosus, unspecified Comprehensive Met. Panel 3 Months M06.9 - Rheumatoid arthritis, unspecified C Reactive Protein 3 Months M06.9 - Rheumatoid arthritis, unspecified AMB Joint Injection/Aspiration Today M06.9 - Rheumatoid arthritis, unspecified Anti DNA DS Antibody 3 Months M32.9 - Systemic lupus erythematosus, unspecified Complement C3 3 Months M32.9 - Systemic lupus erythematosus, unspecified Sjogren's Antibodies 3 Months M32.9 - Systemic lupus erythematosus, unspecified DNA Double Stranded-Crithidia 3 Months M32.9 - Systemic lupus erythematosus, unspecified Medications: Changed From etanercept (Enbrel SureClick) 50 mg subcut QWEEK 4 mL 4RF M06.9 - Rheumatoid arthritis, unspecified To Enbrel SureClick (etanercept) 50 mg subcut QWEEK 4 mL 4RF NS M06.9 - Rheumatoid arthritis, unspecified Coding Level of Care Code Est Pt Level 5 (88947) Diagnoses Rheumatoid arthritis M06.9 Long-term use of immunosuppressant medication Z79.899 CPT Codes Coding - 85949 Large joint: 21998 - Large joint ([id number])
[2023-05-26 10:36] VITALS: BP 132/78; PULSE 92; TEMP 36.8; O2SAT 98; BMI 27.1
== END 2023-05-26 11:48 | disposition home or self-care (01) ==
PROVIDERS: PCP Family Medicine; Visit Provider Student in an Organized Health Care Education/Training Program
DX: M06.09 Rheumatoid arthritis without rheumatoid factor, multiple sites (principal); Z79.899 Other long term (current) drug therapy; M25.461 Effusion, right knee; M25.462 Effusion, left knee
CPT/HCPCS: 20610; 99215

== ENCOUNTER → 2023-05-26 10:32 | Outpatient (BNVA) | payer OTHER, SELFPAY | PROVIDERS: PCP Family Medicine; Visit Provider Student in an Organized Health Care Education/Training Program | DX: M05.9 Rheumatoid arthritis with rheumatoid factor, unspecified (principal); M25.561 Pain in right knee; M25.562 Pain in left knee; Z79.899 Other long term (current) drug therapy | CPT/HCPCS: 20610; J3301 ==

== ENCOUNTER 2023-06-25 13:45 | Outpatient (REF) | payer OTHER, SELFPAY ==
[2023-06-25 18:53] LABS: Alanine Aminotransferase 8 U/L (0-31); Albumin Level 3.9 g/dL (3.5-5.0); Alkaline Phosphatase 108 U/L (39-117); Anion Gap 16 (12-20); Aspartate Amino Transferase 12 U/L (5-31); Bilirubin Direct 0.1 mg/dL (0.0-0.5); Bilirubin Total 0.4 mg/dL (0.0-1.0); Blood Urea Nitrogen 68 mg/dL (9-16); Calcium 8.5 mg/dL (8.4-10.2); Carbon Dioxide 16 mmol/L (22-29); Chloride 113 mmol/L (96-108); Cholesterol 162 mg/dL (<200); Estimated Glomerular Filt Rate 7; Glucose Fasting 69 mg/dL (60-99); HDL Cholesterol 39 mg/dL (>40); LDL Cholesterol Calculated 108 mg/dL (<100); Potassium 5.3 mmol/L (3.3-5.1); Sodium 140 mmol/L (135-145); Total Protein 7.8 g/dL (6.5-8.0); Triglycerides 79 mg/dL (<150)
[2023-06-25 19:18] LABS: Magnesium 1.3 mg/dL (1.6-2.6)
== END 2023-06-25 13:46 | disposition home or self-care (01) ==
LOC: HO.CHCLDS 13:45
PROVIDERS: Visit Provider Student in an Organized Health Care Education/Training Program
DX: I10 Essential (primary) hypertension (principal)
CPT/HCPCS: 36415; 80048; 80061; 80076; 83735

== ENCOUNTER 2023-07-12 14:11 | Outpatient (AMB) | payer OTHER, SELFPAY ==
[2023-07-12 14:18] VITALS: BP 136/74; BMI 26.9
--- NOTE | 2023-07-12 14:18 | A.OFFVIS_ITS ---
Intake Vital Signs 07/12/23 14:18 Height 5 ft 4 in Weight 156 lb 8.451 oz BMI 26.9 BP 136/74 Blood Pressure Location Rt brachial Position Sitting Intake Visit Reasons: RA/FMLA Paperwork Intake Note: Pt last seen 05/26/23 presents in office today to complete FMLA paperwork Medical Clerical Assistant Required: No Allergies etanercept [From Enbrel] Allergy (Verified 07/12/23 14:20) Rash acetaminophen [From Percocet] Adverse Reaction (Verified 07/12/23 14:20) unk azithromycin [From Zithromax] Adverse Reaction (Verified 07/12/23 14:20) unk cephalexin Adverse Reaction (Verified 07/12/23 14:20) unk levofloxacin [From Levaquin] Adverse Reaction (Verified 07/12/23 14:20) unk lisinopril Adverse Reaction (Verified 07/12/23 14:20) unk meperidine [From Demerol] Adverse Reaction (Verified 07/12/23 14:20) unk nitrofurantoin [From Macrobid] Adverse Reaction (Verified 07/12/23 14:20) unk oxycodone [From Percocet] Adverse Reaction (Verified 07/12/23 14:20) unk Penicillins Adverse Reaction (Verified 07/12/23 14:20) unk Sulfa (Sulfonamide Antibiotics) Adverse Reaction (Verified 07/12/23 14:20) unk Medication List - Last Reconciled 07/12/23 by Clari Ellington MD acetaminophen ER 650 mg PO Q8H PRN amlodipine 5 mg PO DAILY cane As directed cholecalciferol (vitamin D3) 50 mcg PO DAILY diclofenac sodium 3% 1 appl topical BID Enbrel SureClick (etanercept) 50 mg subcut QWEEK NS ergocalciferol (vitamin D2) 1,250 mcg PO QWEEK fluticasone propionate 50 mcg/actuation 1 spray intranasal DAILY PRN folic acid 1 mg PO DAILY labetalol 300 mg PO BID loratadine 10 mg PO DAILY PRN omeprazole 20 mg PO BID HPI HPI Comments History of Present Illness Details 57-year-old female with seropositive rhe umatoid arthritis returns for follow-up. She is here for her FMLA paperwork completion. She states that she has been on Enbrel regularly since last visit and she feels some improvement. Now she is able to walk with a cane, but with significant difficulty. Majority of her pain is in both knees, particularly the left knee hands, ankles, feet are better Most recent history by Dr. Jessica 01/2023: The patient returns for evaluation of her rheumatoid arthritis. She was last here in October. We had started the Humira and she had about 3 doses at the time. There was no obvious improvement but she was walking. Apparently in November she felt that she was losing hair because of the Humira so she decided to stop it. She did not call the office. Now for the past 3 weeks she has had severe pain in the knees, particularly the left knee. There was no recent injury. She does still try to work, often missing because of the knee pain. She has not had a renal visit to assess her CKD recently. She does have a follow-up planned in the next few weeks with Nephrology. She does take acetaminophen for her pains with questionable benefit. She had been offered the placement of an AV fistula to manage her CKD but had declined at the time. She has some help at home with her sister who brought her in today. 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 Review of Systems Musc Reports abnormal gait, Reports arthralgias, Reports joint swelling, Reports limited range of motion and Reports stiffness Neuro Reports abnormal gait Physical Exam Vital Signs: Last Vital Signs BP 136/74 07/12/23 14:18 BMI result Body Mass Index 26.9 Const General: cooperative and tired appearing Orientation/consciousness: patient oriented x3 Limitations: ambulation with cane HEENT Head: Yes normocephalic and Yes atraumatic Mouth: moist mucous membranes Resp Effort & Inspection: normal respiratory effort and able to speak in complete sentences Neuro General: patient oriented x3 Extrem Other: No wrist swelling or tenderness today, no pain with flexion and extension Bilateral diffuse MCP synovial thickening but no tenderness No PIP tenderness bilaterally Bilateral elbow contracture, patient can not extend both elbows fully Normal range of motion of shoulders Bilateral knee swelling warmth and tenderness, pain with any range of motion, some contracture of left knee Bilateral ankle swelling without much tenderness Normal nailfold capillaroscopy Assessment & Plan Assessment & Plan (1) Rheumatoid arthritis: Comment: ELBA+ RF+ CCP+++ - onset-2018? Noncompliance with follow-up 06/2022 Humira started; patient stopped - hair thinning 02/2023: Enbrel Code(s): M06.9 - Rheumatoid arthritis, unspecified Qualifiers: Rheumatoid arthritis location: multiple sites Rheumatoid factor presence: with rheumatoid factor Qualified Code(s): M05.79 - Rheumatoid arthritis with rheumatoid factor of multiple sites without organ or systems involvement Plan: This is a 57-year-old female with seropositive erosive RA who presents for follow-up. She is here for completion of her FMLA paperwork. She has been on Enbrel regularly since last visit. She has much less swollen joints however continues to have significant swelling and tenderness of her knees. Which are her main complaint. FMLA paperwork completed. Advised patient to continue using Enbrel regularly. Check blood work. Will consider changing her treatment next visit (2) Long-term use of immunosuppressant medication: Code(s): Z79.899 - Other exterminator helper (current) drug therapy Plan: Advised patient to call the clinic if she develops any signs of fever or an infection Plan I spent 36 minutes reviewing patient's chart, evaluating patient, ordering diagnostic workup, completing FMLA paperwork, counseling patient and documenting in the chart Orders: Orders Erythrocyte Sedimentation Rate Today M06.9 - Rheumatoid arthritis, unspecified Coding Level of Care Code Est Pt Level 4 (43384) Diagnoses Rheumatoid arthritis involving multiple sites with positive rheumatoid factor M05.79 Rheumatoid arthritis location: multiple sites Rheumatoid factor presence: with rheumatoid factor Long-term use of immunosuppressant medication Z79.899
== END 2023-07-12 15:11 | disposition home or self-care (01) ==
LOC: HO.RHE 14:11
PROVIDERS: PCP Family Medicine; Visit Provider Student in an Organized Health Care Education/Training Program
DX: M05.79 Rheumatoid arthritis with rheumatoid factor of multiple sites without organ or systems involvement (principal); Z79.899 Other long term (current) drug therapy
CPT/HCPCS: 99214

== ENCOUNTER → 2023-07-12 14:11 | Outpatient (BNVA) | payer OTHER, SELFPAY | PROVIDERS: PCP Family Medicine; Visit Provider Student in an Organized Health Care Education/Training Program ==

== ENCOUNTER 2023-09-09 11:59 | Outpatient (REF) | payer OTHER, SELFPAY ==
[2023-09-09 12:21] LABS: MANUAL DIFF FLAG NO
[2023-09-09 12:56] LABS: Basophils Percent Auto 0.2 % (0-2); Eosinophils Percent Auto 0.2 % (0-4); Hematocrit 29.2 % (37.0-47.0); Hemoglobin 9.1 g/dl (12.0-16.0); Imm Gran Abs Auto 0.04 X10*3/uL (0.00-0.03); Imm Gran Pct Auto 0.7 % (0.0-0.4); Lymphocytes Absolute Auto 0.9 X10*3/uL (1.2-4.9); Lymphocytes Percent Auto 17.5 % (20-40); Mean Corpuscular HGB Conc 31.2 g/dl (31.0-35.0); Mean Corpuscular Hemoglobin 29.7 pg (27.0-33.0); Mean Corpuscular Volume 95.4 fL (80.0-98.0); Mean Platelet Volume 12.3 fL (9.4-12.3); Monocytes Absolute Auto 0.4 X10*3/uL (0.1-1.2); Monocytes Percent Auto 6.9 % (2-11); Neutrophils Percent Auto 74.5 % (45-73); Platelet Count 213 X10*3/uL (160-400); Red Blood Count 3.06 X10*6/uL (4.20-5.50); White Blood Count 5.4 X10*3/uL (4.8-10.8)
[2023-09-09 13:39] LABS: Erythrocyte Sedimentation Rate 33 MM/HR (0-20); Rheumatoid Factor < 13.0 IU/mL (<15.0)
[2023-09-09 13:45] LABS: Alanine Aminotransferase 10 U/L (0-31); Alkaline Phosphatase 90 U/L (39-117); Anion Gap 16 (12-20); Aspartate Amino Transferase 11 U/L (5-31); Bilirubin Total 0.3 mg/dL (0.0-1.0); Blood Urea Nitrogen 80 mg/dL (9-16); C Reactive Protein 0.76 mg/dL (< or = 0.50); Calcium 7.5 mg/dL (8.4-10.2); Carbon Dioxide 18 mmol/L (22-29); Chloride 112 mmol/L (96-108); Glucose Random 86 mg/dL (60-115); Potassium 5.5 mmol/L (3.3-5.1); Sodium 140 mmol/L (135-145); Total Protein 7.6 g/dL (6.5-8.0)
[2023-09-09 13:51] LABS: Estimated Glomerular Filt Rate 6
[2023-09-10 14:18] LABS: Cyclic Citrullinated Peptide >250 UNITS
[2023-09-10 21:23] LABS: Anti DNA DS Antibody <1 IU/mL; Antibody to SS-A Antigen <1.0 NEG AI (<1.0 NEG); Antibody to SS-B Antigen <1.0 NEG AI (<1.0 NEG); SM/Ribonucleoprotein Ab <1.0 NEG AI (<1.0 NEG); Smith Protein <1.0 NEG AI (<1.0 NEG)
[2023-09-14 13:48] LABS: Anti Nuclear Antibody Screen NEGATIVE (NEGATIVE)
[2023-09-15 08:54] LABS: Complement C3 126 mg/dL (83-193)
[2023-09-16 12:38] LABS: DNAds, Crithidia Antibody Negative (Negative)
== END 2023-09-09 12:00 | disposition home or self-care (01) ==
LOC: HO.LAB 11:59
PROVIDERS: Visit Provider Student in an Organized Health Care Education/Training Program
DX: M06.9 Rheumatoid arthritis, unspecified (principal); M32.9 Systemic lupus erythematosus, unspecified
CPT/HCPCS: 36415; 80053; 85025; 85652; 86038; 86140; 86160; 86200; 86225; 86235; 86255; 86431

== ENCOUNTER 2023-09-09 12:37 | Outpatient (AMB) | payer OTHER, SELFPAY ==
--- NOTE | 2023-09-09 12:41 | A.OFFVIS_ITS ---
Vital Signs 09/09/23 12:48 BMI Reason not done Patient refused/unable BP 160/82 H Blood Pressure Location Rt brachial Position Sitting Intake Visit Reasons: RA/CM Intake Note: Patient last seen 07/12/23 presents today for follow up and test results. 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 Required: No Accompanied by: Grand Child Allergies etanercept [From Enbrel] Allergy (Verified 09/09/23 12:50) Rash acetaminophen [From Percocet] Adverse Reaction (Verified 09/09/23 12:50) unk azithromycin [From Zithromax] Adverse Reaction (Verified 09/09/23 12:50) unk cephalexin Adverse Reaction (Verified 09/09/23 12:50) unk levofloxacin [From Levaquin] Adverse Reaction (Verified 09/09/23 12:50) unk lisinopril Adverse Reaction (Verified 09/09/23 12:50) unk meperidine [From Demerol] Adverse Reaction (Verified 09/09/23 12:50) unk nitrofurantoin [From Macrobid] Adverse Reaction (Verified 09/09/23 12:50) unk oxycodone [From Percocet] Adverse Reaction (Verified 09/09/23 12:50) unk Penicillins Adverse Reaction (Verified 09/09/23 12:50) unk Sulfa (Sulfonamide Antibiotics) Adverse Reaction (Verified 09/09/23 12:50) unk Medication List - Last Reconciled 09/09/23 by Clari Ellington MD acetaminophen ER 650 mg PO Q8H PRN amlodipine 5 mg PO DAILY cane As directed cholecalciferol (vitamin D3) 50 mcg PO DAILY diclofenac sodium 3% 1 appl topical BID Enbrel SureClick (etanercept) 50 mg subcut QWEEK NS ergocalciferol (vitamin D2) 1,250 mcg PO QWEEK fluticasone propionate 50 mcg/actuation 1 spray intranasal DAILY PRN folic acid 1 mg PO DAILY labetalol 300 mg PO BID loratadine 10 mg PO DAILY PRN omeprazole 20 mg PO BID prednisone Take 2 tabs daily for 1 week then remain on 1 tab daily until next visit HPI Comments Details: 57-year-old female with seropositive erosive rheumatoid arthritis returns for follow-up. She continues to feel about the same. She remains on Enbrel 50 mg weekly. She states that they retired her from her job due to inability to walk. She continues to have bilateral knee pain that is pretty significant, much more severe on the left knee. She can barely bend her left knee. She is doing well otherwise from arthritis perspective. She denies any hand pain, swelling or stiffness. She was evaluated by her it network engineer for 3 months ago and kidney transplantation was discussed. Most recent history by Dr. Jessica 01/2023: The patient returns for evaluation of her rheumatoid arthritis. She was last here in October. We had started the Humira and she had about 3 doses at the time. There was no obvious improvement but she was walking. Apparently in November she felt that she was losing hair because of the Humira so she decided to stop it. She did not call the office. Now for the past 3 weeks she has had severe pain in the knees, part icularly the left knee. There was no recent injury. She does still try to work, often missing because of the knee pain. She has not had a renal visit to assess her CKD recently. She does have a follow-up planned in the next few weeks with Nephrology. She does take acetaminophen for her pains with questionable benefit. She had been offered the placement of an AV fistula to manage her CKD but had declined at the time. She has some help at home with her sister who brought her in today. 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 Review of Systems Musc Reports abnormal gait, Reports arthralgias, Reports joint swelling, Reports limited range of motion and Reports stiffness Neuro Reports abnormal gait Physical Exam Vital Signs: Last Vital Signs BP 160/82 H 09/09/23 12:48 Const General: cooperative and tired appearing Orientation/consciousness: patient oriented x3 Limitations: ambulation with cane HEENT Head: Yes normocephalic and Yes atraumatic Mouth: moist mucous membranes Resp Effort & Inspection: normal respiratory effort and able to speak in complete sentences Neuro General: patient oriented x3 Extrem Other: No wrist swelling or tenderness today, no pain with flexion and extension Bilateral diffuse MCP synovial thickening but no tenderness No PIP tenderness bilaterally Bilateral mild elbow contracture, patient can not extend both elbows fully Normal range of motion of shoulders Right knee warmth, minimal swelling and pain with range of motion Significant left knee swelling Tenderness, warmth and pain with any range of motion Right ankle swelling and warmth with no tenderness Normal nailfold capillaroscopy Assessment & Plan Assessment & Plan (1) Rheumatoid arthritis: Comment: ELBA+ RF+ CCP+++ - onset-2018? Noncompliance with follow-up 06/2022 Humira started; patient stopped - hair thinning 02/2023: Enbrel Code(s): M06.9 - Rheumatoid arthritis, unspecified Category: Medical Qualifiers: Rheumatoid arthritis location: multiple sites Rheumatoid factor p resence: with rheumatoid factor Qualified Code(s): M05.79 - Rheumatoid arthritis with rheumatoid factor of multiple sites without organ or systems involvement Plan: This is a 57-year-old female with seropositive erosive RA who presents for follow-up. She has been on Enbrel regularly for at least 4 months now. She has significantly improved synovitis however she continues to have significant bilateral knee synovitis, much more severe on the left. She has pain with any range of motion She has right ankle synovitis as well. Continues to have mildly elevated inflammatory markers. Will need to change DMARDs. Patient had side effects with Humira, can not use methotrexate, leflunomide, or SARA inhibitors due to her CKD. Discussed risks and benefits of Orencia. Patient agreed to proceed. Will start prior authorization for [facility] before next visit in 3 months (2) Long-term use of immunosuppressant medication: Code(s): Z79.899 - Other mcfp (current) drug therapy Category: Medical Plan: Advised patient to call the clinic if she develops any signs of fever or an infection (3) Osteoarthritis of left knee: Code(s): M17.12 - Unilateral primary osteoarthritis, left knee Category: Medical Qualifiers: Osteoarthritis type: other secondary Qualified Code(s): M17.5 - Other unilateral secondary osteoarthritis of knee Plan: Progressive, now she has pain with any range of motion of her left knee. She has developed a contracture as well. I referred patient to orthopedics Start tramadol 50 mg Twice daily as needed for pain (4) Osteoarthritis of right knee: Code(s): M17.11 - Unilateral primary osteoarthritis, right knee Category: Medical Qualifiers: Osteoarthritis type: other secondary Qualified Code(s): M17.5 - Other unilateral secondary osteoarthritis of knee (5) CKD (chronic kidney disease) stage 5, GFR less than 15 ml/min: Comment: Thought to be secondary to chronic NSAID use and or hypertension. Code(s): N18.5 - Chronic kidney disease, stage 5 Category: Medical Plan: Progressive CKD. Patient follows up regularly with a it network engineer. She was evaluated 2-3 months ago and kidney transplantation was discussed. Plan I spent 36 minutes reviewing patient's chart, evaluating patient, ordering diagnostic workup, counseling patient and documenting in the chart Orders: Orders Complete Blood Count Auto Diff 3 Months M05.79 - Rheumatoid arthritis with rheumatoid factor of multiple sites without organ or systems involvement C Reactive Protein 3 Months M05.79 - Rheumatoid arthritis with rheumatoid factor of multiple sites without organ or systems involvement Erythrocyte Sedimentation Rate 3 Months M05.79 - Rheumatoid arthritis with rhe umatoid factor of multiple sites without organ or systems involvement Comprehensive Met. Panel 3 Months M05.79 - Rheumatoid arthritis with rheumatoid factor of multiple sites without organ or systems involvement Referrals Orthopedics Referral M17.5 - Other unilateral secondary osteoarthritis of knee Medications: New tramadol 50 mg PO BID PRN 60 tabs 0RF pain Coding Level of Care Code Est Pt Level 5 (80522) Complex EM visit Add On G2211 Diagnoses Rheumatoid arthritis involving multiple sites with positive rheumatoid factor M05.79 Rheumatoid arthritis location: multiple sites Rheumatoid factor presence: with rheumatoid factor Long-term use of immunosuppressant medication Z79.899 Other secondary osteoarthritis of left knee M17.5 Osteoarthritis type: other secondary Other secondary osteoarthritis of right knee M17.5 Osteoarthritis type: other secondary CKD (chronic kidney disease) stage 5, GFR less than 15 ml/min N18.5
[2023-09-09 12:48] VITALS: BP 160/82
== END 2023-09-09 13:11 | disposition home or self-care (01) ==
PROVIDERS: PCP Family Medicine; Visit Provider Student in an Organized Health Care Education/Training Program
DX: M05.79 Rheumatoid arthritis with rheumatoid factor of multiple sites without organ or systems involvement (principal); Z79.899 Other long term (current) drug therapy; M17.5 Other unilateral secondary osteoarthritis of knee; N18.5 Chronic kidney disease, stage 5
CPT/HCPCS: 99214; G2211

== ENCOUNTER 2023-09-21 13:14 | Outpatient (AMB) | payer OTHER, SELFPAY ==
[2023-09-21 13:20] VITALS: BMI 26.8
--- NOTE | 2023-09-21 13:20 | MHC.OFFVIS ---
Vital Signs 09/21/23 13:20 Height 5 ft 4 in Weight 156 lb BMI 26.8 Intake Visit Reasons: OV- B/L Knee OA Intake Note: Milly is a 57 year old female who presents with bilateral knee pains, left greater than right. She describes her left knee pain as sharp and severe in nature, 10/10. Her pain has gotten worse over the last few years in spite of continued non operative treatments. She has had injections in the past. The most recent injection gave her no relief. She has also tried physical therapy which aggravated her pain. She has tried Tylenol and anti-inflammatory medicines which gave her minimal relief. The patient has difficulty walking even short distances because of her pain. At this point her left knee pain is interfering with her activities of daily living and her ability to sleep well through the night. Allergies etanercept [From Enbrel] Allergy (Verified 09/21/23 13:30) Rash acetaminophen [From Percocet] Adverse Reaction (Verified 09/21/23 13:30) unk azithromycin [From Zithromax] Adverse Reaction (Verified 09/21/23 13:30) unk cephalexin Adverse Reaction (Verified 09/21/23 13:30) unk levofloxacin [From Levaquin] Adverse Reaction (Verified 09/21/23 13:30) unk lisinopril Adverse Reaction (Verified 09/21/23 13:30) unk meperidine [From Demerol] Adverse Reaction (Verified 09/21/23 13:30) unk nitrofurantoin [From Macrobid] Adverse Reaction (Verified 09/21/23 13:30) unk oxycodone [From Percocet] Adverse Reaction (Verified 09/21/23 13:30) unk Penicillins Adverse Reaction (Verified 09/21/23 13:30) unk Sulfa (Sulfonamide Antibiotics) Adverse Reaction (Verified 09/21/23 13:30) unk Medication List - Last Reconciled 09/23/23 by Austin Howell MD acetaminophen ER 650 mg PO Q8H PRN amlodipine 5 mg PO DAILY cane As directed cholecalciferol (vitamin D3) 50 mcg PO DAILY diclofenac sodium 3% 1 appl topical BID ergocalciferol (vitamin D2) 1,250 mcg PO QWEEK fluticasone propionate 50 mcg/actuation 1 spray intranasal DAILY PRN folic acid 1 mg PO DAILY labetalol 300 mg PO BID loratadine 10 mg PO DAILY PRN omeprazole 20 mg PO BID Orencia ClickJect (abatacept) 125 mg subcut QWEEK NS prednisone Take 2 tabs daily for 1 week then remain on 1 tab daily until next visit tramadol 50 mg PO BID PRN PFSH Medical History Pain and swelling of right knee Long-term use of immunosuppressant medication CKD (chronic kidney disease) stage 3, GFR 30-59 ml/min HTN (hypertension) Acid reflux Increased creatine kinase level Allergies Surgical History H/O: hysterectomy Family History Sister Rheumatoid arthritis Social History Alcohol intake: never Patient Tobacco Use Status: Never used Tobacco Current occupational status: employed 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 Physical Exam Vital Signs: BMI result Body Mass Index 26.8 Const Other: Well-nourished well-developed very friendly female awake alert and oriented x3 in no acute distress Extrem Other: Bilateral lower extremity examination shows good capillary refill, no skin lesions noted, normal sensation light touch Left knee examination shows a minimal effusion, palpable crepitus with range of motion, pain with range of motion, no instability, range of motion from-5 degrees to 115 degrees Results Reviewed Results Reviewed: X-rays of the patient's left knee show end-stage degenerative joint disease with grade 4 [id number] arthritis, subchondral sclerosis, osteophyte formation, no acute bony abnormalities Assessment & Plan Assessment & Plan (1) Osteoarthritis of left knee: Code(s): M17.12 - Unilateral primary osteoarthritis, left knee Category: Medical Qualifiers: Osteoarthritis type: other secondary Qualified Code(s): M17.5 - Other unilateral secondary osteoarthritis of knee Plan Ms. Zavaleta presents with progressively worsening left knee pain due to end-stage osteoarthritis. I had a lengthy discussion with the patient regarding the treatment options. At this point she has failed continued non operative treatments. The risks and benefits of left total knee replacement surgery were discussed at length with the patient. The patient wishes to proceed with surgery. She will be scheduled for next available date. I will see her back 1 week prior to her surgery to answer any final questions that she might have. Feel free to call me at any time should questions regarding her orthopedic management arise. Thank you very much for asking me to see this very friendly patient. I spent 21 minutes in reviewing the patient's records and imaging studies, seeing the patient and documenting in the medical record. Coding Level of Care Code New Pt Level 3 (18443) Diagnoses Other secondary osteoarthritis of left knee M17.5 Osteoarthritis type: other secondary
== END 2023-09-21 13:47 | disposition home or self-care (01) ==
PROVIDERS: PCP Family Medicine; Visit Provider Orthopaedic Surgery
DX: M17.12 Unilateral primary osteoarthritis, left knee (principal)
CPT/HCPCS: 99203

== ENCOUNTER → 2023-09-21 13:14 | Outpatient (BNVA) | payer OTHER, SELFPAY | PROVIDERS: PCP Family Medicine; Visit Provider Orthopaedic Surgery ==

== ENCOUNTER → 2023-11-30 14:01 | Outpatient (BNVA) | payer OTHER, SELFPAY | PROVIDERS: PCP Family Medicine | DX: Z01.818 Encounter for other preprocedural examination (principal) ==

== ENCOUNTER 2024-02-23 13:30 | Outpatient (AMB) | payer MEDICAID, SELFPAY ==
--- NOTE | 2024-02-23 13:35 | MHC.OFFVIS ---
Vital Signs 02/23/24 13:44 Height 5 ft 4 in BMI Reason not done Patient refused/unable BP 115/70 Blood Pressure Location Rt brachial Position Sitting Pulse 92 Pulse Source Pulse Oximeter Pulse Oximetry (%) 99 Oxygen Delivery Method Room Air Intake Visit Reasons: RA/CM Intake Note: Patient presents for RA. Allergies prednisone Allergy (Severe, Verified 02/23/24 13:41) Swelling etanercept [From Enbrel] Allergy (Verified 09/21/23 13:30) Rash acetaminophen [From Percocet] Adverse Reaction (Verified 09/21/23 13:30) unk azithromycin [From Zithromax] Adverse Reaction (Verified 09/21/23 13:30) unk cephalexin Adverse Reaction (Verified 09/21/23 13:30) unk levofloxacin [From Levaquin] Adverse Reaction (Verified 09/21/23 13:30) unk lisinopril Adverse Reaction (Verified 09/21/23 13:30) unk meperidine [From Demerol] Adverse Reaction (Verified 09/21/23 13:30) unk nitrofurantoin [From Macrobid] Adverse Reaction (Verified 09/21/23 13:30) unk oxycodone [From Percocet] Adverse Reaction (Verified 09/21/23 13:30) unk Penicillins Adverse Reaction (Verified 09/21/23 13:30) unk Sulfa (Sulfonamide Antibiotics) Adverse Reaction (Verified 09/21/23 13:30) unk Medication List - Last Reconciled 02/23/24 by Clari Ellington MD acetaminophen ER 650 mg PO Q8H PRN amlodipine 5 mg PO DAILY cane As directed cholecalciferol (vitamin D3) 50 mcg PO DAILY diclofenac sodium 3% 1 appl topical BID ergocalciferol (vitamin D2) 1,250 mcg PO QWEEK fluticasone propionate 50 mcg/actuation 1 spray intranasal DAILY PRN folic acid 1 mg PO DAILY labetalol 300 mg PO BID loratadine 10 mg PO DAILY PRN omeprazole 20 mg PO BID sodium bicarbonate 650 mg PO DAILY [toilet seat raiser Toilet seat raiser] tramadol 50 mg PO DAILY PRN walker Folding front wheeled walker HPI Comments Details: 58-year-old female with seropositive erosive rheumatoid arthritis returns for follow-up. After last visit, we had decided to discontinue her Enbrel and start Orencia. Orencia was approved but patient did not start it as co-pay was 82 dollars a month and she currently does not work. She has not doing well. With ongoing diffuse joint pain especially in both knees, more severe on the left. Most recent history by Dr. Jessica 01/2023: The patient returns for evaluation of her rheumatoid arthritis. She was last here in October. We had started the Humira and she had about 3 doses at the time. There was no obvious improvement but she was walking. Apparently in November she felt that she was losing hair because of the Humira so she decided to stop it. She did not call the office. Now for the past 3 weeks she has had severe pain in the knees, particularly the left knee. There was no recent injury. She does still try to work, often missing because of the knee pain. She has not had a renal visit to assess her CKD recently. She does have a follow-up planned in the next few weeks with Nephrology. She does take acetaminophen for her pains with questionable benefit. She had been offered the placement of an AV fistula to manage her CKD but had declined at the time. She has some help at home with her sister who brought her in today. 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 Review of Systems [facility] Reports abnormal gait, Reports arthralgias, Reports joint swelling, Reports limited range of motion and Reports stiffness Neuro Reports abnormal gait Physical Exam Vital Signs: Last Vital Signs Pulse 92 02/23/24 13:44 BP 115/70 02/23/24 13:44 Pulse Ox 99 02/23/24 13:44 Oxygen Delivery Method Room Air 02/23/24 13:44 Const General: cooperative and tired appearing Orientation/consciousness: patient oriented x3 Limitations: ambulation with walker HEENT Head: Yes normocephalic and Yes atraumatic Mouth: moist mucous membranes Resp Effort & Inspection: normal respiratory effort and able to speak in complete sentences Cardio Rate: regular rate Neuro General: patient oriented x3 Extrem Other: Significant right wrist swelling especially at the ulnar styloid associated with tenderness and significant pain with flexion-extension Mild swelling and tenderness of the left wrist Bilateral diffuse MCP synovial thickening in addition so some swelling and tenderness Multiple swollen and tender PIPs bilaterally Patient can barely flex her PIP is Bilateral elbow contracture Significantly limited range of motion of both shoulders Bilateral knee warmth, no significant swelling significant pain with any range of motion No ankle swelling or tenderness today left foot diffuse MTP tenderness Normal nailfold capillaroscopy Assessment & Plan Assessment & Plan (1) Rheumatoid arthritis: Comment: ELBA+ RF+ CCP+++ - onset-2018? Noncompliance with follow-up 06/2022 Humira started; patient stopped - hair thinning 02/2023: Enbrel partially effective DC'd 08/2023 Code(s): M06.9 - Rheumatoid arthritis, unspecified Category: Medical Qualifiers: Rheumatoid arthritis location: multiple sites Rheumatoid factor presence: with rheumatoid factor Qualified Code(s): M05.79 - Rheumatoid arthritis with rheumatoid factor of multiple sites without organ or systems involvement Plan: This is a 58-year-old female with seropositive erosive RA who presents for follow-up. After last visit we had decided to switch her to Orencia due to incomplete response to Enbrel. Orencia was approved but patient could not afford it has for co-pay is 82 dollars and she is not working currently. Unfortunately her condition has been complicated by poor compliance with medication and follow-up. Her disease is quite progressive. Patient has not been on any DMARDs since last visit about 5 months ago. She has missed multiple visits. I had a long discussion with patient regarding her condition and the need for medication compliance and follow-up with clinic visits. I provided patient with the Orencia patient assistance form. I gave it to patient's sister Liliana. They will let me know whether Milly would qualify, if she does not quantify, I will look into other mode of treatment such as Orencia infusions. If patient can not get any biologics, we may consider triple therapy Start tramadol to use only as needed for severe pain Blood work before next visit in 2 months (2) Long-term use of immunosuppressant medication: Code(s): Z79.899 - Other terminal carman (current) drug therapy Category: Medical Plan: Advised patient to call the clinic if she develops any signs of fever or an infection (3) Osteoarthritis of left knee: Code(s): M17.12 - Unilateral primary osteoarthritis, left knee Category: Medical Qualifiers: Osteoarthritis type: other secondary Qualified Code(s): M17.5 - Other unilateral secondary osteoarthritis of knee Plan: Progressive, now she has pain with any range of motion of her left knee. She has developed a contracture as well. She was evaluated by Orthopedics and left knee replacement was suggested. The surgery however was canceled due to poor follow-up (4) Osteoarthritis of right knee: Code(s): M17.11 - Unilateral primary osteoarthritis, right knee Category: Medical Qualifiers: Osteoarthritis type: other secondary Qualified Code(s): M17.5 - Other unilateral secondary osteoarthritis of knee (5) CKD (chronic kidney disease) stage 5, GFR less than 15 ml/min: Comment: Thought to be secondary to chronic NSAID use and or hypertension. Code(s): N18.5 - Chronic kidney disease, stage 5 Category: Medical Plan I spent 30 minutes reviewing patient's chart, evaluating patient, ordering diagnostic workup, counseling patient and documenting in the chart Orders: Orders Erythrocyte Sedimentation Rate 2 Months R63.4 - Abnormal weight loss Medications: Changed From tramadol 50 mg PO BID PRN 60 tabs 0RF pain To tramadol 50 mg PO DAILY PRN 20 tabs 0RF pain Coding Level of Care Code Est Pt Level 4 (88769) Complex EM visit Add On G2211 Diagnoses Rheumatoid arthritis involving multiple sites with positive rheumatoid factor M05.79 Rheumatoid arthritis location: multiple sites Rheumatoid factor presence: with rheumatoid factor Long-term use of immunosuppressant medication Z79.899 Other secondary osteoarthritis of left knee M17.5 Osteoarthritis type: other secondary Other secondary osteoarthritis of right knee M17.5 Osteoarthritis type: other secondary CKD (chronic kidney disease) stage 5, GFR less than 15 ml/min N18.5
[2024-02-23 13:44] VITALS: BP 115/70; PULSE 92; O2SAT 99
== END 2024-02-23 14:26 | disposition home or self-care (01) ==
LOC: HO.RHE 13:30
PROVIDERS: PCP Family Medicine; Visit Provider Student in an Organized Health Care Education/Training Program
DX: M05.79 Rheumatoid arthritis with rheumatoid factor of multiple sites without organ or systems involvement (principal); Z79.899 Other long term (current) drug therapy; M17.5 Other unilateral secondary osteoarthritis of knee; N18.5 Chronic kidney disease, stage 5
CPT/HCPCS: 99214

== ENCOUNTER → 2024-02-23 13:30 | Outpatient (BNVA) | payer MEDICAID, SELFPAY | PROVIDERS: PCP Family Medicine; Visit Provider Student in an Organized Health Care Education/Training Program | DX: M05.79 Rheumatoid arthritis with rheumatoid factor of multiple sites without organ or systems involvement (principal); M17.5 Other unilateral secondary osteoarthritis of knee; N18.5 Chronic kidney disease, stage 5; R63.4 Abnormal weight loss; Z79.899 Other long term (current) drug therapy | CPT/HCPCS: 99212 ==

== ENCOUNTER 2024-03-07 10:55 | Outpatient (REF) | payer MEDICAID, SELFPAY ==
[2024-03-07 14:14] LABS: MANUAL DIFF FLAG NO
[2024-03-07 14:22] LABS: Basophils Percent Auto 0.5 % (0-2); Eosinophils Absolute Auto 0.2 X10*3/uL (0.0-0.4); Eosinophils Percent Auto 3.1 % (0-4); Hematocrit 22.6 % (37.0-47.0); Imm Gran Abs Auto 0.07 X10*3/uL (0.00-0.03); Imm Gran Pct Auto 1.1 % (0.0-0.4); Lymphocytes Absolute Auto 1.7 X10*3/uL (1.2-4.9); Mean Corpuscular HGB Conc 30.5 g/dl (31.0-35.0); Mean Corpuscular Hemoglobin 29.1 pg (27.0-33.0); Mean Corpuscular Volume 95.4 fL (80.0-98.0); Monocytes Absolute Auto 0.5 X10*3/uL (0.1-1.2); Monocytes Percent Auto 7.9 % (2-11); Neutrophils Absolute Auto 3.7 x10*3/uL (2.0-8.3); Neutrophils Percent Auto 59.4 % (45-73); Platelet Count 329 X10*3/uL (160-400); Red Blood Count 2.37 X10*6/uL (4.20-5.50); Red Cell Distribution Width 16.3 % (11.0-16.0); White Blood Count 6.2 X10*3/uL (4.8-10.8)
[2024-03-07 14:31] LABS: Hemoglobin 6.9 g/dl (12.0-16.0)
[2024-03-07 14:58] LABS: Alanine Aminotransferase < 6 U/L (0-31); Albumin Level 3.7 g/dL (3.5-5.0); Alkaline Phosphatase 96 U/L (39-117); Anion Gap 16 (12-20); Aspartate Amino Transferase 23 U/L (5-31); Bilirubin Total 0.2 mg/dL (0.0-1.0); Blood Urea Nitrogen 84 mg/dL (9-16); Calcium 9.2 mg/dL (8.4-10.2); Carbon Dioxide 13 mmol/L (22-29); Chloride 112 mmol/L (96-108); Estimated Glomerular Filt Rate 6; Glucose Random 84 mg/dL (60-115); Magnesium 1.2 mg/dL (1.6-2.6); Potassium 5.4 mmol/L (3.3-5.1); Sodium 136 mmol/L (135-145); Total Protein 8.2 g/dL (6.5-8.0)
[2024-03-07 15:08] LABS: TSH reflex Free T4 5.86 uIU/mL (0.32-4.0)
[2024-03-07 15:11] LABS: Erythrocyte Sedimentation Rate 95 MM/HR (0-20)
[2024-03-07 16:09] LABS: Free T4 (Free Thyroxine) 0.89 ng/dL (0.71-1.85)
== END 2024-03-07 10:56 | disposition home or self-care (01) ==
LOC: HO.CHCLDS 10:55
PROVIDERS: PCP Student in an Organized Health Care Education/Training Program; Referring Provider Student in an Organized Health Care Education/Training Program; Visit Provider Internal Medicine
DX: R25.1 Tremor, unspecified (principal); R63.4 Abnormal weight loss
CPT/HCPCS: 36415; 80053; 83735; 84439; 84443; 85025; 85652

== ENCOUNTER 2024-03-07 14:33 | Outpatient (REF) | payer MEDICAID, SELFPAY ==
[2024-03-29 14:05] LABS: HPV 16,18/45 See PAP report
== END 2024-03-07 14:34 | disposition home or self-care (01) ==
LOC: HO.HHCLNP 14:33
PROVIDERS: Visit Provider Family Medicine
DX: Z12.4 Encounter for screening for malignant neoplasm of cervix (principal)
CPT/HCPCS: 87624; 88175

== ENCOUNTER 2024-03-31 15:08 | Outpatient (REF) | payer MEDICAID, SELFPAY ==
[2024-03-31 18:31] LABS: Anion Gap 15 (12-20); Blood Urea Nitrogen 83 mg/dL (9-16); Calcium 9.1 mg/dL (8.4-10.2); Carbon Dioxide 18 mmol/L (22-29); Chloride 110 mmol/L (96-108); Glucose Random 89 mg/dL (60-115); Sodium 138 mmol/L (135-145)
[2024-03-31 18:38] LABS: Estimated Glomerular Filt Rate 6
== END 2024-03-31 15:09 | disposition home or self-care (01) ==
LOC: HO.CHCLDS 15:08
PROVIDERS: Visit Provider Registered Nurse
DX: N18.5 Chronic kidney disease, stage 5 (principal)
CPT/HCPCS: 36415; 80048

== ENCOUNTER → 2024-05-31 15:27 | Outpatient (BNVA) | payer MEDICAID, SELFPAY | PROVIDERS: PCP Student in an Organized Health Care Education/Training Program; Visit Provider Student in an Organized Health Care Education/Training Program | DX: M05.79 Rheumatoid arthritis with rheumatoid factor of multiple sites without organ or systems involvement (principal); M17.4 Other bilateral secondary osteoarthritis of knee; Z79.899 Other long term (current) drug therapy | CPT/HCPCS: 99212 ==

== ENCOUNTER 2024-07-05 14:03 | Outpatient (REF) | payer MEDICAID, SELFPAY ==
--- NOTE | ~2024-07-05 | XR_ITS ---
EXAMINATION: XR KNEE, LEFT CLINICAL INFORMATION: M17.12 - Unilateral primary osteoarthritis, left knee COMPARISON: 07/17/2021. MRI left knee 11/04/2020. TECHNIQUE: Three views of the left knee. FINDINGS: No fracture or dislocation. No bone lesions. There is normal alignment. Significant progression of arthritis in the medial and lateral compartments, now severe. There is severe joint space loss, subchondral cystic changes and sclerosis with irregularity of the articular surfaces. Inflammatory arthropathy is a consideration. There is relative preservation of the patellofemoral joint, with only mild arthritis present. There is a small suprapatellar joint effusion. There is no soft tissue abnormality. XR/XR knee LT 3V IMPRESSION: 1. Significant and rapid progression of bicompartmental arthritis, now severe in the medial and lateral compartments. Relative preservation of the patellofemoral joint. Consider inflammatory arthropathy. 2. Small joint effusion. Electronically signed by: Eric Martel MD 07/06/2024 09:34 AM EDT
--- OUTSIDE RECORDS SUMMARY | 2024-07-05 16:37 | XMS_ITS | Encounter Summary ---
Author Organization [facility] Address [address] [facility] [address] [place] [address] Phone Care Team Providers Care Business Office Technology Instructor Name Role Phone Asya Pillai MD Primary Care Provider [phone] Reason for Visit * Reason Onset Date Comments Med Refill 06/28/2024 Encounter Details Date Type Department Care Team (Late Contact Info) Description 06/28/2024 Refill [facility] [address] [place] [address] Kendra Arroyo [address] [facility] [address] [place] [address] Stage 5 chronic kidney disease (HCC) Social History Tobacco Use Types Packs/Day Years Used Date Smoking Tobacco: Never Passive Smoke Exposure: Never Smokeless Tobacco: Never Alcohol Use Standard Drinks/Week Comments No 0 (1 standard drink = 0.6 oz pur e alcohol) Comments Unknown Sex and Gender Information Value Date Recorded Sex Assigned at Not on file Legal Sex Female 5:01 PM EST Gender Identity Not on file Sexual Orientation Not on file documented as of this encounter Plan of Treatment Upcoming Encounters Date Type Department Care Team (Late st Contact Info) Description 08/02/2024 4:15 PM EDT Office Visit [facility] [address] [facility] [address] [place] [address] Charles Kennedy MD [address] [facility] [address] [place] [address] documented as of this encounter Visit Diagnoses Diagnosis Stage 5 chronic kidney disease (HCC) documented in this encounter Care Teams Business Office Technology Instructor Relationship Specialty Start Date End Date Asya Pillai MD [address] [place] [address] PCP - General 05/06/20 documented as of this encounter
--- OUTSIDE RECORDS SUMMARY | 2024-07-05 16:37 | XMS_ITS | Clinical Summary ---
Author Organization [facility] Address [address] [place] [address] Care Team Providers Care Kitchenwhere Maker Name Role Phone Sujatha Torres MD Primary Care Provider [phone] Surgical History Surgery Date Site/Laterality Comments HYSTERECTOMY PROCEDURE: HISTORICAL HYSTERECTOMY BREAST REDUCTION 2010 Bilateral PROCEDURE: [place] BREAST REDUCTION Medical History Medical History Date Comments CKD (chronic kidney disease) stage 3, GFR 30-59 ml/min (CMS/HCC) 11/28/2015 DX:CKD (chronic kidney dise ase) stage 3, GFR 30-59 ml/min (HCC) Family History Medical History Relation Name Comments Hypertension Father Hypertension Mother CHF, CKD (dialy sis) Hypertension Sister Relation Name Status Comments Brother Alive 2,healthy Father Alive Mother Sister Alive 3,one has lot o f medical prob but not sure Social History Tobacco Use Types Packs/Day Years Used Date Smoking Tobacco: Never Smokeless Tobacco: Never Alcohol Use Standard Drinks/Week Comments No 0 (1 standard drink = 0.6 oz pur e alcohol) Comments Unknown Sex and Gender Information Value Date Recorded Sex Assigned at Not on file Legal Sex Female 12:07 PM EST Gender Identity Not on file Sexual Orientation Not on file Obstetrics History Plan of Treatment Health Maintenance Due Date Last Done Comments Breast Cancer Screening 1965 DTaP,Tdap,and Td Vaccines (1 - Tdap) 1984 Hepatitis B Vaccines (1 of 3 - 19+ 3-dose series) 1984 Cervical Cancer Screening: P ap Smear 1986 Pneumococcal Vaccine: 50+ Ye ars (1 of 1 - PCV) 11/13/2015 Zoster Vaccines (1 of 2) 11/13/2015 COVID-19 Vaccine ( - 2023-2 5 season) 2023 Influenza Vaccine (#1) 2023 HIB Vaccines Aged Out No longer eligi ble based on patient's age to complete this topic HPV Vaccines Aged Out No longer eligi ble based on patient's age to complete this topic Hepatitis A Vaccines Aged Out No long er eligible based on patient's age to complete this topic IPV Vaccines Aged Out No longer eligi ble based on patient's age to complete this topic MMR Vaccines Aged Out No longer eligi ble based on patient's age to complete this topic Meningococcal ACWY Vaccine Aged Out N o longer eligible based on patient's age to complete this topic Meningococcal B Vacine Aged Out No lo nger eligible based on patient's age to complete this topic Pneumococcal Vaccine: Pediat rics (0 to 5 Years) and At-Risk Patients (6 to 64 Years) Aged Out No longer eligible b ased on patient's age to complete this topic RSV Immunization Patients Un evi 20 months Aged Out No longer eligible b ased on patient's age to complete this topic Varicella Vaccines Aged Out No longer eligible based on patient's age to complete this topic Care Teams Kitchenwhere Maker Relationship Specialty Start Date End Date Sujatha Torres MD [address] [place] [id number] PCP - General Internal Medicine 06/30/16
--- OUTSIDE RECORDS SUMMARY | 2024-07-05 16:37 | XMS_ITS | Encounter Summary ---
Author Organization [employer] Address [address] [facility] [address] [place] [address] Care Team Providers Care Strategy Associate Name Role Phone Asya Pillai MD Primary Care Provider [phone] Cr Ellington MD Unavailable Reason for Visit * Reason Onset Date Comments Pre-op Visit 11/01/2023 Encounter Details Date Type Department Care Team ([facility] st Contact Info) Description 11/01/2023 Telephone [facility] [address] [place] [address] Asya Pillai MD [address] [place] [address] Pre-op Visit Social History Tobacco Use Types Packs/Day Years Used Date Smoking Tobacco: Never Smokeless Tobacco: Never Alcohol Use Standard Drinks/Week Comments Defer 0 (1 standard drink = 0.6 oz pur e alcohol) Comments Unknown Sex and Gender Information Value Date Recorded Sex Assigned at Female 02/23/2022 10:31 AM EDT Legal Sex Female 10:31 AM EDT Gender Identity Female 02/23/2022 10:31 AM EDT Sexual Orientation Choose not to disclose 2021 10:31 AM EDT documented as of this encounter Miscellaneous Notes * Telephone Encounter - Zach Moore - 11/01/2023 10:10 AM EDT TC to Anupama Velasquez . Agreed to Pre-op on 11/[address] Pillai . Call also placed to pt . No draft roller picker butleft a detailed message regarding upcoming visit . Anupama advised that she will fax over last office notes , and what is needed for pre-op . Date of Surgery: 12/12 Surgical procedure being done: Left Total Knee Replacement Type of anesthesia: Spinal and nerve block Lab needed: Yes EKG: Yes Surgeon's name: Dr Austin Howell Facility name: [facility] Surgeon's office number: [phone] Surgeon's office fax number: [phone] Contact name; Anupama Last office note from surgeon requested: Yes * Telephone Encounter - Mellisa Ulrich - 11/01/2023 8:50 AM EDT Date of Surgery: 12/12 Surgical procedure being done: Left Total Knee Replacement Type of anesthesia: Spinal and nerve block Lab needed: Yes EKG: Yes Surgeon's name: Dr Austin Howell Facility name: [facility] Surgeon's office number: [phone] Surgeon's office fax number: [phone] Contact name; Anupama Last office note from surgeon requested: Yes documented in this encounter Plan of Treatment Not on file documented as of this encounter Visit Diagnoses Not on filedocumented in this encounter Care Teams Strategy Associate Relationship Specialty Start Date End Date Asya Pillai MD [address] [place] [phone] PCP - General Family Medicine 09/04/19 Cr Ellington MD [address] [place] [id number] Rheumatology 04/02/24 [facility] 03/10/24 Charles Kennedy MD [address] [place] [id number] Nephrology 04/02/24 documented as of this encounter
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
--- OUTSIDE RECORDS SUMMARY | 2024-07-05 16:37 | XMS_ITS | Encounter Summary ---
Author Organization [employer] Address [address] [facility] 7t [place] [address] Care Team Providers Care Rubber Production Machine Operator Name Role Phone Asya Pillai MD Primary Care Provider [phone] rC Ellington MD Unavailable Encounter Details Date Type Department Care Team ([facility] st Contact Info) Description 03/10/2024 Telephone [facility] [address] [place] [address] Asya Pillai MD [address] [place] [address] Social History Tobacco Use Types Packs/Day Years [...] encounter Miscellaneous Notes * Telephone Encounter - Casey Arroyo - 03/10/2024 10:29 AM EST Tc from pt requesting a HDF appt. Hospital: [facility] Date of admission: 03/07 Discharge date: 03/09 Diagnosed: Low Blood levels Contact pt at [phone] *Send message to [place] Clinical Care Coordinators documented in this encounter Plan of Treatment Not on file documented as of this encounter Visit Diagnoses Not on filedocumented in this encounter Care Teams Rubber Production Machine Operator Relationship Specialty Start Date End Date Asya Pillai MD [address] [place] [address] PCP - General Family Medicine 09/04/19 Cr Ellington MD [address] [place] [phone] Rheumatology 04/02/24 [facility] 03/10/24 Charles Kennedy MD [address] [place] [phone] Nephrology 04/02/24 documented as of this encounter
--- OUTSIDE RECORDS SUMMARY | 2024-07-05 16:37 | XMS_ITS | Encounter Summary ---
Author Organization [facility] Address [address] [facility] [address] [place] [address] Phone Care Team Providers Care Barn Manager Name Role Phone Asya Pillai MD Primary Care Provider [phone] Reason for Visit * Reason Onset Date Comments Med Refill 06/29/2024 Encounter Details Date Type Department Care Team (Late Contact Info) Description 06/29/2024 Refill [facility] [address] [facility] [address] [place] [phone] Genoveva Plata [place] [address] [facility] [address] [place] [address] Social History Tobacco Use Types Packs/Day Years [...] Encounters Date Type Department Care Team (Late Contact Info) Description 08/02/2024 4:15 PM EDT Office Visit [facility] [address] [facility] [address] [place] [address] Charles Kennedy MD [address] [facility] [address] [place] [address] documented as of this encounter Visit Diagnoses Not on filedocumented in this encounter Care Teams Barn Manager Relationship Specialty Start Date End Date Asya Pillai MD [address] [place] [phone] PCP - General 05/06/20 documented as of this encounter
--- OUTSIDE RECORDS SUMMARY | 2024-07-05 16:37 | XMS_ITS | Encounter Summary ---
Author Organization [employer] Address [address] [facility] [address] [place] [address] Care Team Providers Care Manager Material Name Role Phone Asya Pillai MD Primary Care Provider [phone] Cr Ellington MD Unavailable Reason for Visit * Reason Comments Med Refill Encounter Details Date Type Department Care Team ([facility] st Contact Info) Description 06/05/2024 Refill [facility] [address] [place] [address] Asya Pillai MD [address] [place], [place] [phone] Social History Tobacco Use Types Packs/Day Years Used Date Smoking Tobacco: Never Smokeless Tobacco: Never Alcohol Use Standard Drinks/Week Comments Defer 0 (1 standard drink = 0.6 oz pur e alcohol) Housing Stability Answer Date Recorded What is your housing situation today? I have salma thibodeaux 05/16/[address] you li ve. Do you have problems with any of the following? None of the above 05/16/2024 Food Insecurity Answer Date Recorded Within the past 12 months, y ou worried that your food would run out before you got money to buy more: Never True 05/16/2024 Within the past 12 months,th e food you bought just didn't last and you didn't have enough money to get more: Never True Transportation Answer Date Recorded In the past 12 months, has l ack of transportation kept you from medical appts, meetings, work or from getting things needed for daily living? No 05/16/2024 Utilities Answer Date Recorded In the past 12 months, has t he electric, gas, oil or water company threatened to shut off services in your home? No 05/16/2024 Internet Access Answer Date Recorded Internet Access Q1 Yes 05/16/2024 Internet Access Q2 Not on file 05/16/2024 Comments Unknown Sex and Gender Information Value Date Recorded Sex Assigned at Female 02/23/2022 10:31 AM EDT Legal Sex Female 10:31 AM EDT Gender Identity Female 02/23/2022 10:31 AM EDT Sexual Orientation Choose not to disclose 2021 10:31 AM EDT documented as of this encounter Plan of Treatment Not on file documented as of this encounter Visit Diagnoses Not on filedocumented in this encounter Care Teams Manager Material Relationship Specialty Start Date End Date Asya Pillai MD [address] [place] [address] PCP - General Family Medicine 09/04/19 Cr Ellington MD [address] [place] [phone] Rheumatology 04/02/24 [facility] 03/10/24 Charles Kennedy MD [address] [place] [phone] Nephrology 04/02/24 documented as of this encounter
--- OUTSIDE RECORDS SUMMARY | 2024-07-05 16:37 | XMS_ITS | Encounter Summary ---
Author Organization [employer] Address [address] [facility] 7t [place] [address] Care Team Providers Care Radiation Technician Name Role Phone Asya Pillai MD Primary Care Provider [phone] Cr Ellington MD Unavailable Reason for Visit * Reason Onset Date Comments Appointment Request 01/25/2024 Encounter Details Date Type Department Care Team ([facility] st Contact Info) Description 01/25/2024 Telephone [facility] [address] [place] [address] Asya Pillai MD [address] [place] [address] Appointment Request Social History Tobacco Use Types Packs/Day Years [...] encounter Miscellaneous Notes * Telephone Encounter - Stef Howell - 01/25/2024 8:08 AM EDT Tc from patient calling to cancel PAP appt with on 01/24 and would like a call back to reschedule and due to PATIENT SAFETY MANAGER only working Afternoon would like a afternoon appt documented in this encounter Plan of Treatment Not on file documented as of this encounter Visit Diagnoses Not on filedocumented in this encounter Care Teams Radiation Technician Relationship Specialty Start Date End Date Asya Pillai MD [address] [place] [address] PCP - General Family Medicine 09/04/19 Cr Ellington MD [address] [place] [id number] Rheumatology 04/02/24 [facility] 03/10/24 Charles Kennedy MD [address] [place] [phone] Nephrology 04/02/24 documented as of this encounter
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
== END 2024-07-05 14:04 | disposition home or self-care (01) ==
LOC: HO.HOSX 14:03
PROVIDERS: Visit Provider Orthopaedic Surgery
DX: M17.12 Unilateral primary osteoarthritis, left knee (principal); M25.562 Pain in left knee
CPT/HCPCS: 73562; 99212

== ENCOUNTER 2024-07-05 14:26 | Outpatient (AMB) | payer MEDICAID, SELFPAY ==
--- NOTE | 2024-07-05 14:39 | MHC.OFFVIS ---
Vital Signs 07/05/24 14:39 Height 5 ft 4 in BMI Reason not done Patient refused/unable Intake Visit Reasons: Left knee pain Intake Note: Milly is a 58 year old female who presents with complaints of progressively worsening left knee pain and stiffness. She describes her pain as sharp in nature. Her pain has gotten worse over the last few years in spite of continued non operative treatments. She does have rheumatoid arthritis. The patient states that her left knee pain is now interfering with her activities of daily living and her ability to sleep well through the night. Allergies prednisone Allergy (Severe, Verified 07/05/24 14:40) Swelling etanercept [From Enbrel] Allergy (Verified 07/05/24 14:40) Rash acetaminophen [From Percocet] Adverse Reaction (Verified 07/05/24 14:40) unk azithromycin [From Zithromax] Adverse Reaction (Verified 07/05/24 14:40) unk cephalexin Adverse Reaction (Verified 07/05/24 14:40) unk levofloxacin [From Levaquin] Adverse Reaction (Verified 07/05/24 14:40) unk lisinopril Adverse Reaction (Verified 07/05/24 14:40) unk meperidine [From Demerol] Adverse Reaction (Verified 07/05/24 14:40) unk nitrofurantoin [From Macrobid] Adverse Reaction (Verified 07/05/24 14:40) unk oxycodone [From Percocet] Adverse Reaction (Verified 07/05/24 14:40) unk Penicillins Adverse Reaction (Verified 07/05/24 14:40) unk Sulfa (Sulfonamide Antibiotics) Adverse Reaction (Verified 07/05/24 14:40) unk Medication List - Last Reconciled 07/06/24 by Austin Howell MD abatacept (Orencia ClickJect) 125 mg subcut QWEEK acetaminophen ER 650 mg PO Q8H PRN amlodipine 5 mg PO DAILY cane As directed cholecalciferol (vitamin D3) 50 mcg PO DAILY diclofenac sodium 3% 1 appl topical BID fluticasone propionate 50 mcg/actuation 1 spray intranasal DAILY PRN folic acid 1 mg PO DAILY labetalol 300 mg PO BID loratadine 10 mg PO DAILY PRN omeprazole 20 mg PO BID sodium bicarbonate 650 mg PO DAILY [toilet seat raiser Toilet seat raiser] walker Folding front wheeled walker [facility] Medical History (Updated 07/05/24 @ 14:04 by Austin Howell MD) Osteoarthritis of knees, bilateral Pain and swelling of right knee Long-term use of immunosuppressant medication CKD (chronic kidney disease) stage 3, GFR 30-59 ml/min HTN (hypertension) Acid reflux Increased creatine kinase level Allergies Surgical History H/O: hysterectomy Family History Sister Rheumatoid arthritis Social History Alcohol intake: never Patient Tobacco Use Status: Never used Tobacco Current occupational status: employed 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 Zavaleta presents with progressively worsening left knee pain due to end-stage rheumatoid arthritis. I had a lengthy discussion with the patient regarding the treatment options. Because of the patient's limited range of motion and proximal tibia deformity I do not feel comfortable performing her total knee arthroplasty. I will discuss this further with my partner, Dr. Rios. The patient may need to be referred to a tertiary care center such as [facility]. I will contact the patient by phone after discussing her case with my partner. Feel free to call me at any time should questions regarding her orthopedic management arise. I spent 20 minutes in reviewing the patient's records and imaging studies, seeing the patient and documenting in the medical record. Orders: Orders XR knee LT 3V 07/05/24 M17.12 - Unilateral primary osteoarthritis, left knee Coding Level of Care Code Est Pt Level 3 (92297) Complex EM visit Add On G2211 Diagnoses Left knee pain M25.562
--- OUTSIDE RECORDS SUMMARY | 2024-07-05 17:01 | XMS_ITS | Encounter Summary ---
Author Organization [employer] Address [address] 7t [place] [address] Care Team Providers Care Java J2Ee Lead Name Role Phone Asya Pillai MD Primary Care Provider [phone] Cr Ellington MD Unavailable Reason for Visit * Reason Comments Med Refill Encounter Details Date Type Department Care Team ([facility] st Contact Info) Description 06/05/2024 Refill [facility] [address] [place] [address] Asya Pillai MD [address] [place], [place] [phone] Social History Tobacco Use Types Packs/Day Years [...] on filedocumented in this encounter Care Teams Java J2Ee Lead Relationship Specialty Start Date End Date Asya Pillai MD [address] [place] [address] PCP - General Family Medicine 09/04/19 Cr Ellington MD [address] [place] [address] Rheumatology 04/02/24 [facility] 03/10/24 Charles Kennedy MD [address] [place] [address] Nephrology 04/02/24 documented as of this encounter
--- OUTSIDE RECORDS SUMMARY | 2024-07-05 17:01 | XMS_ITS | Encounter Summary ---
Author Organization [facility] Address [address] [place] [address] Phone Care Team Providers Care Upper Inspector Name Role Phone Asya Pillai MD Primary Care Provider [phone] Reason for Visit * Reason Onset Date Comments Med Refill 06/29/2024 Encounter Details Date Type Department Care Team (Late Contact Info) Description 06/29/2024 Refill [facility] [address] [place] [phone] Genoveva Plata [place] [address] [facility] [address] [place] [address] Social History Tobacco Use Types [...] EDT Office Visit [facility] [address] [place] [address] Charles Kennedy MD [address] [place] [address] documented as of this encounter Visit Diagnoses Not on filedocumented in this encounter Care Teams Upper Inspector Relationship Specialty Start Date End Date Asya Pillai MD [address] [place] [address] PCP - General 05/06/20 documented as of this encounter
--- OUTSIDE RECORDS SUMMARY | 2024-07-05 17:01 | XMS_ITS | Clinical Summary ---
Author Organization [facility] Address [address] [place] [phone] Phone Care Team Providers Care Ironer Or Presser Name Role Phone Asya Pillai MD Primary Care Provider [phone] Allergies Active Allergy Reactions Criticality Noted Date [...] evaluate for continued stability, per report from [facility] CT pelvic/abdo dated 06/09/13 Noncompliance with treatment 08/19/2021 08/11/2022 Uterine leiomyoma 08/19/2021 08/11/2022 Vertigo 03/26/2015 08/11/2022 Allergic rhinitis, cause unspecified 01/18/2007 08/11/2022 Overview (08/05/2022): 10/01 ct sinus minimal changes Encounters Date Type Department Care Team Description 06/29/2024 Refill [facility] [address] [facility] [address] [place] [phone] Genoveva Plata MA 06/28/2024 Refill [facility] [address] [place] [phone] Kendra Arroyo Stage 5 chronic kidney disease (HCC) 05/08/2024 Refill [facility] [address] [facility] [address] [place] [address] Charles Kennedy MD from Last [...] Office Visit [facility] [address] [phone] Charles Kennedy MD [facility] [phone] Health Maintenance Due Date Last Done Comments [...] 02/27/2014, 03/06/2013, Additional history exists Insurance [place] Care Teams Ironer Or Presser Relationship Specialty Start Date End Date Asya Pillai MD [address] [place] [address] PCP - General 05/06/20
--- OUTSIDE RECORDS SUMMARY | 2024-07-05 17:01 | XMS_ITS | Encounter Summary ---
Author Organization [facility] Address [address] [facility] [address] [place] [address] Phone Care Team Providers Care Baker Pie Name Role Phone Asya Pillai MD Primary Care Provider [phone] Reason for Visit * Reason Onset Date Comments Med Refill 06/28/2024 Encounter Details Date Type Department Care Team (Late Contact Info) Description 06/28/2024 Refill [facility] [address] [place] [address] Kendra Arroyo [address] [facility] [address] [place] [address] Stage 5 chronic kidney disease [...] EDT Office Visit [facility] [address] [facility] [address] [place] [address] Charles Kennedy MD [address] [facility] [address] [place] [address] documented as of this encounter Visit Diagnoses Diagnosis Stage 5 chronic kidney disease (HCC) documented in this encounter Care Teams Baker Pie Relationship Specialty Start Date End Date Asya Pillai MD [address] [place] [address] PCP - General 05/06/20 documented as of this encounter
--- OUTSIDE RECORDS SUMMARY | 2024-07-05 17:01 | XMS_ITS | Clinical Summary ---
Author Organization [facility] Address [address] [place] [address] Care Team Providers Care Pipe Coremaker Name Role Phone Sujatha Torres MD Primary Care Provider [phone] Surgical History Surgery Date Site/Laterality Comments HYSTERECTOMY PROCEDURE: HISTORICAL HYSTERECTOMY BREAST REDUCTION 2010 Bilateral PROCEDURE: [place] BREAST REDUCTION Medical History Medical History Date [...] age to complete this topic Care Teams Pipe Coremaker Relationship Specialty Start Date End Date Sujatha Torres MD [address] [place] [phone] PCP - General Internal Medicine 06/30/16
--- OUTSIDE RECORDS SUMMARY | 2024-07-05 17:01 | XMS_ITS | Encounter Summary ---
Author Organization [employer] Address [address] [facility] 7t [place] [address] Care Team Providers Care Assembler Truck Trailer Name Role Phone Asya Pillai MD Primary Care Provider [phone] Cr Ellington MD Unavailable Reason for Visit * Reason Onset Date Comments Pre-op Visit 11/01/2023 Encounter Details Date Type Department Care Team ([facility] st Contact Info) Description 11/01/2023 Telephone [facility] [address] [place] [address] Asya Pillai MD [address] [place] [address] Pre-op Visit Social History Tobacco Use Types [...] Call also placed to pt . No diamond picker butleft a detailed message regarding upcoming visit . Anupama advised that she will fax over last office notes , and what is needed for pre-op . Date of Surgery: 12/12 Surgical procedure being done: Left Total Knee Replacement Type of anesthesia: Spinal and nerve block Lab needed: Yes EKG: Yes Surgeon's name: Dr Austin Howell Facility name: [facility] Surgeon's office number: [phone] Surgeon's office fax number: [phone] Contact name; Anupama Last office note from surgeon requested: Yes * Telephone Encounter - Mellisa Ulrich - 11/01/2023 8:50 AM EDT Date of Surgery: 12/12 Surgical procedure being done: Left Total Knee Replacement Type of anesthesia: Spinal and nerve block Lab needed: Yes EKG: Yes Surgeon's name: Dr Austin Howell Facility name: [facility] Surgeon's office number: [phone] Surgeon's office fax number: [phone] Contact name; Anupama Last office note from surgeon requested: Yes documented in this encounter Plan of Treatment Not on file documented as of this encounter Visit Diagnoses Not on filedocumented in this encounter Care Teams Assembler Truck Trailer Relationship Specialty Start Date End Date Asya Pillai MD [address] [place] [address] PCP - General Family Medicine 09/04/19 Cr Ellington MD [address] [place] [address] Rheumatology 04/02/24 [facility] 03/10/24 Charles Kennedy MD [address] [place] [address] Nephrology 04/02/24 documented as of this encounter
--- OUTSIDE RECORDS SUMMARY | 2024-07-05 17:01 | XMS_ITS | Encounter Summary ---
Author Organization [employer] Address [address] [facility] 7t [place] [address] Care Team Providers Care Dermatology Physician Assistant Name Role Phone Asya Pillai MD Primary Care Provider [phone] Cr Ellington MD Unavailable Encounter Details Date Type Department Care Team ([facility] st Contact Info) Description 03/10/2024 Telephone [facility] [address] [place] [address] Asya Pillai MD [address] [place] [address] Social History Tobacco Use Types Packs/Day Years [...] from pt requesting a HDF appt. Hospital: [facility] Date of admission: 03/07 Discharge date: 03/09 Diagnosed: Low Blood levels Contact pt at [phone] *Send message to [facility] Clinical Care Coordinators documented in this encounter Plan of Treatment Not on file documented as of this encounter Visit Diagnoses Not on filedocumented in this encounter Care Teams Dermatology Physician Assistant Relationship Specialty Start Date End Date Asya Pillai MD [address] [place] [address] PCP - General Family Medicine 09/04/19 Cr Ellington MD [address] [place] [address] Rheumatology 04/02/24 [facility] 03/10/24 Charles Kennedy MD [address] [place] [address] Nephrology 04/02/24 documented as of this encounter
--- OUTSIDE RECORDS SUMMARY | 2024-07-05 17:01 | XMS_ITS | Encounter Summary ---
Author Organization [employer] Address [address] [facility] 7t [place] [address] Care Team Providers Care Pc Installation Engineer Name Role Phone Asya Pillai MD Primary Care Provider [phone] Cr Ellington MD Unavailable Reason for Visit * Reason Onset Date Comments Appointment Request 01/25/2024 Encounter Details Date Type Department Care Team ([facility] st Contact Info) Description 01/25/2024 Telephone [facility] [address] [place] [address] Asya Pillai MD [address] [place] [address] Appointment Request Social History Tobacco Use Types [...] call back to reschedule and due to [employer] only working Afternoon would like a afternoon appt documented in this encounter Plan of Treatment Not on file documented as of this encounter Visit Diagnoses Not on filedocumented in this encounter Care Teams Pc Installation Engineer Relationship Specialty Start Date End Date Asya Pillai MD [address] [place] [address] PCP - General Family Medicine 09/04/19 Cr Ellington MD [address] [place] [address] Rheumatology 04/02/24 [facility] 03/10/24 Charles Kennedy MD [address] [place] [address] Nephrology 04/02/24 documented as of this encounter
--- OUTSIDE RECORDS SUMMARY | 2024-07-05 17:01 | XMS_ITS | Clinical Summary ---
Author Organization [employer] Address 75 [facility] 7t [place] [address] Care Team Providers Care Mold Cooler Name Role Phone Asya Pillai MD Primary Care Provider [phone] Cr Ellington MD Unavailable Allergies Active Allergy [...] 1 Bottle by mouth 2 times daily. 81406 mL 11 01/10/20 24 025 Active amLODIPine [...] (04/02/2024 7:55 PM EST): Continues following with Steel Handler Enbrel therapy DME request for transfer board [...] 11:[address] [facility] Class 1 obesity 03/31/2023 01/07/2024 Encounters Date Type Department Care Team Description 06/05/2024 Refill [facility] [address] [facility] [place] [phone] Asya Pillai MD 06/02/2024 Telephone [facility] [address] [facility] [place] [phone] Asya Pillai MD Nurse Triage 05/16/2024 Patient Outreach [facility] CHC MED & PEDS [address] [place], [place] [phone] Asya Pillai MD Pre-visit Planning (SDOH negative, [...] 11:48 AM EST 03/08/2024 11:00 AM EST [facility] LABS - 03/31/2024 11:22 AM EST ----- ------- Name: Milly Zavaleta ? Age/Sex: 58/F ? : 1965 Unit#: [id number] ?? Attend Dr: Ariela Mauricio MD ?Re03/07/24 ?Status: DEP REF ? Location: HO.HHCLNP ? Disch: ? ----- ------- SPEC : [id number] ?RECD: 03/08/24 ? STATUS: ??SOUT ? REQ NUM: [id number] ? JODIE: 03/07/24-1148 ? SUBM DR: Ariela [...] Mauricio MD LAB CYTOLOGY ORDERABLES Final Result [facility] [address] [place] [phone] * (ABNORMAL) Lipid Panel, Standard (06/25/2023 1:49 PM EST) Triglycerides 79 <150 mg/dL [facility] Comment:Desirable Triglyceri de: less than 150 mg/dLBorderline High Triglyceride 150-199 mg/dLHigh Triglyceride: 200-499 mg/dLVery High Triglyceride: greater than or equal to 5OO mg/dL Cholesterol 162 <200 mg/dL [facility] Comment:Desirable Cholestero l: less than 200 mg/dLBorderline High Cholesterol: 200-239 mg/dLHigh Cholesterol: greater than 239 mg/dL LDL Cholesterol Calculated 108(H) <100 mg/dL [facility] Comment:Desirable LDL: less than 100 mg/dLNear Optimal/Above Optimal LDL: 110- 129 mg/dLBorderline High LDL: 130-159 mg/dLHigh LDL: 160-189 mg/dLVery High LDL: greater than or equal to 190 mg/dL HDL Cholesterol 39(L) >40 mg/dL [facility] Comment:Desirable HDL: great er than 40 mg/dL Note: This HDL assay may give artificially low results in patients with liver disease. 06/25/2023 1:49 PM EST 06/25/2023 5:34 PM EST us Asya Pillai MD LAB BLOOD ORDERABLES Final Resul t [facility] [address] [place] [phone] * 3D DIGITAL REYNOLD SCR MAMMO [...] to Health Maintenance Insurance C3 Care Teams Mold Cooler Relationship Specialty Start Date End Date Asya Pillai MD [address] [place] [id number] PCP - General Family Medicine 09/04/19 Cr Ellington MD [address] [place] [phone] Rheumatology 04/02/24 [facility] 03/10/24 Charles Kennedy MD [address] [place] [address] Nephrology 04/02/24
== END 2024-07-05 15:10 | disposition home or self-care (01) ==
LOC: HO.HOS 14:26
PROVIDERS: PCP Student in an Organized Health Care Education/Training Program; Visit Provider Orthopaedic Surgery
DX: M06.862 Other specified rheumatoid arthritis, left knee (principal)
CPT/HCPCS: 99213

== ENCOUNTER → 2024-07-05 14:34 | Outpatient (BNV) | payer MEDICAID, SELFPAY | PROVIDERS: Visit Provider Radiology Diagnostic Radiology | DX: M17.12 Unilateral primary osteoarthritis, left knee (principal); M25.462 Effusion, left knee | CPT/HCPCS: 73562 ==

== ENCOUNTER 2024-08-28 14:34 | Outpatient (AMB) | payer MEDICAID, SELFPAY ==
[2024-08-28 14:37] VITALS: BMI 26.8
--- NOTE | 2024-08-28 14:37 | A.OFFVIS_ITS ---
Vital Signs 08/28/24 14:37 Height 5 ft 4 in Weight 156 lb BMI 26.8 Intake Visit Reasons: OV - discuss left TKA Intake Note: Milly is a 58 year old female who presents today to discuss possible Left TKA. She was last seen with Dr. Howell who states that the patient limited ROM and Proximal Tibia Deformity, because of this he has referred to Dr. Rios. Allergies prednisone Allergy (Severe, Verified 08/28/24 14:40) Swelling etanercept [From Enbrel] Allergy (Verified 08/28/24 14:40) Rash acetaminophen [From Percocet] Adverse Reaction (Verified 08/28/24 14:40) unk azithromycin [From Zithromax] Adverse Reaction (Verified 08/28/24 14:40) unk cephalexin Adverse Reaction (Verified 08/28/24 14:40) unk levofloxacin [From Levaquin] Adverse Reaction (Verified 08/28/24 14:40) unk lisinopril Adverse Reaction (Verified 08/28/24 14:40) unk meperidine [From Demerol] Adverse Reaction (Verified 08/28/24 14:40) unk nitrofurantoin [From Macrobid] Adverse Reaction (Verified 08/28/24 14:40) unk oxycodone [From Percocet] Adverse Reaction (Verified 08/28/24 14:40) unk Penicillins Adverse Reaction (Verified 08/28/24 14:40) unk Sulfa (Sulfonamide Antibiotics) Adverse Reaction (Verified 08/28/24 14:40) unk HPI HPI OV - discuss left TKA: Details: Milly is a 58 year old female who presents today to discuss possible Left TKA. She was last seen with Dr. Howell who states that the patient limited ROM and Proximal Tibia Deformity, because of this he has referred to Dr. Rios. I saw her 3 years ago and she had mild OA. She has rheumatoid arthritis in his now on DMARDs but comes in today not having move her left knee for 9-12 months in his stuck at 90 degrees. She is in a wheelchair. 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 I can not flex or extend her. There is no effusion. No erythema. Tenderness to palpation globally. When asked her to move her knee she flexes her hip. She has 2+ dorsalis pedis pulse in his firing her EHL/gastrocs/tib ant. Results Reviewed Results Reviewed: I personally reviewed relevant radiographs. 1. Significant and rapid progression of bicompartmental arthritis, now severe in the medial and lateral compartments. Relative preservation of the patellofemoral joint. Consider inflammatory arthropathy. 2. Small joint effusion. Assessment & Plan Assessment & Plan (1) Arthritis of left knee: Code(s): M17.12 - Unilateral primary osteoarthritis, left knee Category: Medical Plan: Rapid progression of arthritis and equally concerning is her lack of motion. I discussed these findings with her. I think this is a difficult surgery and I feel like she would be best treated at a tertiary care center with more experience in this management and treatment. I think this may even result in effusion but I would opt to have her seen by a tertiary care arthroplasty specialists. I will arrange this for her and be in contact. Orders: Orders Erythrocyte Sedimentation Rate 08/28/24 M17.12 - Unilateral primary osteoarthritis, left knee C Reactive Protein 08/28/24 M17.12 - Unilateral primary osteoarthritis, left knee Coding Level of Care Code Est Pt Level 4 (87436) Diagnoses Arthritis of left knee M17.12
--- OUTSIDE RECORDS SUMMARY | 2024-08-28 16:07 | XMS_ITS | Encounter Summary ---
Author Organization [employer] Address 75 [facility] 7t [place] [address] Care Team Providers Care Poultry Hatchery Laborer Name Role Phone Asya Pillai MD Primary Care Provider [phone] Cr Ellington MD Unavailable Reason for Visit * Reason Onset Date Comments No Show 08/23/2024 Encounter Details Date Type Department Care Team ([facility] st Contact Info) Description 08/23/2024 Telephone [facility] CHC MED & PEDS [address] [place], [place] [phone] Asya Pillai MD [address] [place] [address] No Show Social History Tobacco Use Types Packs/Day Years Used Date Smoking Tobacco: Never Smokeless Tobacco: Never Alcohol Use Standard Drinks/Week Comments Defer 0 (1 standard drink = 0.6 oz pur e alcohol) Housing Stability Answer Date Recorded What is your housing situation today? I have salmaluis thibodeaux 05/16/[address] you [...] encounter Miscellaneous Notes * Telephone Encounter - Quincy Kilpatrick - 08/23/2024 2:20 PM EDT 08/23/24 no show documented in this encounter Plan of Treatment Not on file documented as of this encounter Visit Diagnoses Not on filedocumented in this encounter Care Teams Poultry Hatchery Laborer Relationship Specialty Start Date End Date Asya Pillai MD [address] [place] [address] PCP - General Family Medicine 09/04/19 Cr Ellington MD [address] [place] [address] [address] [place] [address] Rheumatology 04/02/24 [facility] 03/10/24 Charles Kennedy MD [address] [place] [id number] Nephrology 04/02/24 documented as of this encounter
--- OUTSIDE RECORDS SUMMARY | 2024-08-28 16:07 | XMS_ITS | Clinical Summary ---
Author Organization [facility] Address [address] [place] [address] Care Team Providers Care Recruiting Coordinator Name Role Phone Sujatha Torres MD Primary Care Provider [phone] Surgical History Surgery Date Site/Laterality Comments HYSTERECTOMY PROCEDURE: HISTORICAL HYSTERECTOMY BREAST REDUCTION 2010 Bilateral PROCEDURE: [place] BREAST REDUCTION Medical History Medical History Date Comments CKD (chronic kidney disease) stage 3, GFR 30-59 ml/min (CMS/HCC V24, CMS/HCC V28) 11/28/2015 DX:CKD (chronic kidney disea se) stage 3, GFR 30-59 ml/min ([facility]) Family History Medical History Relation Name Comments [...] Vaccines (1 of 2) 11/13/2015 COVID-19 Vaccine (2023-2 5 season) 2023 Influenza Vaccine (Season Ended) 2024 HIB Vaccines Aged Out No longer eligi [...] age to complete this topic Meningococcal B Vaccine Aged Out No l onger eligible based on patient's age to complete [...] age to complete this topic Care Teams Recruiting Coordinator Relationship Specialty Start Date End Date Sujatha Torres MD [address] [place] [phone] PCP - General Internal Medicine 06/30/16
--- OUTSIDE RECORDS SUMMARY | 2024-08-28 16:07 | XMS_ITS | Encounter Summary ---
Author Organization [employer] Address [address] [facility] 7t [place] [address] Care Team Providers Care Community Director Name Role Phone Asya Pillai MD Primary Care Provider [phone] Cr Ellington MD Unavailable Reason for Visit * Reason Onset Date Comments Nurse Triage 08/07/2024 Encounter Details Date Type Department Care Team ([facility] st Contact Info) Description 08/07/2024 Telephone [facility] CHC MED & PEDS [address] [place], [place] [phone] Asya Pillai MD [address] [place] [address] Nurse Triage Social History Tobacco Use Types Packs/Day Years [...] encounter Miscellaneous Notes * Telephone Encounter - Debi Serrano RN - 08/07/2024 11:22 AM EDT Triage call Pt reports a great deal of weight loss for last 6 months. Pt doesn't have a weight today, unable to stand alone without a walker on home scale. Last documented weight found on chart is OV 03/31/24 wt was 149.8 lbs. Pt reports clothing is very loose and that is how Pt knows weight loss has occurred. Pt denies any difficulty with nausea, vomiting, diarrhea. Neg for PIERRE sx. Pt is eatingtwice daily without difficulty. Pt has apt with PCP 08/23/24 and will wait to see PCP then. Advised will send this information to PCP and [facility] nursing team for PRN follow up if needed. Pt agrees with this plan. Protocol Used: No Protocol Available (Adult) Protocol-Based Disposition: Home Care Positive Triage Question: * Patient's symptoms are safe to treat at home per nursing judgment * All higher-acuity triage questions were negative Care Advice Discussed: * Reasons To Call Back - New symptoms develop - You become worse * Telephone Encounter - Abimbola Ray - 08/07/2024 11:01 AM EDT Symptom: Weight Loss Outcome: Schedule an appointment to be seen within 24 hours Reason: Caller denied all higher acuity questions The caller accepted this outcome. Contact pt at [phone] documented in this encounter Plan of Treatment Not on file documented as of this encounter Visit Diagnoses Not on filedocumented in this encounter Care Teams Community Director Relationship Specialty Start Date End Date Asya Pillai MD [address] [place] [address] PCP - General Family Medicine 09/04/19 Cr Ellington MD [address] [place] [address] Rheumatology 04/02/24 [facility] 03/10/24 Charles Kennedy MD [address] [place] [phone] Nephrology 04/02/24 documented as of this encounter
--- OUTSIDE RECORDS SUMMARY | 2024-08-28 16:07 | XMS_ITS | Clinical Summary ---
Author Organization [employer] Address 75 [facility] 7t [place] [address] Care Team Providers Care Cloth Colors Examiner Name Role Phone Asya Pillai MD Primary Care Provider [phone] Cr Ellington MD Unavailable Allergies Active Allergy [...] by mouth 1 (one) time each day. 3 Active sodium bicarbonate 650 MG tablet Take 1 tablet by mouth 3 times daily. 4 Active acetaminophen (Tylenol 8 Hour) 650 MG ER tablet TAKE 1 TAB BY MOUTH EVERY 8 HOURS NEEDED, SWALLOW WHOLE. DO NOT BREAK/CRUSH/DI SSOLVE/CHEW 21 tablet 3 Active magnesium gluconate 550 MG tablet TAKE 1 TABLET BY MOUTH 2 TIMES DAILY. 60 tablet 11 4 Active Enbrel SureClick 50 MG/ML injection 4 Active labetalol (Normodyne) 300 MG tabletIndications :Benign hypertension TAKE 1 TABLET BY MOUTH TWICE A DAY 180 tablet 1 4 Active cyclobenzaprine (Flexeril) 10 MG tablet Take 1 tablet (10 mg) by mouth 3 times daily for 10 days. 30 tablet 4 Active cholecalciferol VITAMIN D (Vitamin D-3) 50 MCG (2000 UT) capsule Take by mouth Once per day. 4 Active Nutritional Supplements (Boost High Protein) liquid Take 1 Bottle by mouth 2 times daily. [address] mL 11 4 01/10/20 25 Active amLODIPine (Norvasc) 5 MG tablet TAKE 1 TABLET BY MOUTH EVERY DAY IN THE MORNING 90 tablet 3 4 Active omeprazole (PriLOSEC) [address] capsule TAKE 1 CAPSULE BY MOUTH EVERY DAY BEFORE MEALS FOR 180 capsule 3 4 Active triamcinolone (Nasacort) 55 MCG/ACT nasal inhaler Administer 2 sprays into each nostril Once per day. 16.5 g 11 4 02/29/20 25 Active ferrous sulfate 325 (65 Fe) MG EC tablet Take 1 tablet by mouth with breakfast. 4 Active fluticasone (Flonase) 50 MCG/ACT nasal spray SPRAY 1 SPRAY INTO EACH NOSTRIL DAILY NEEDED for nasal congestion and/or allergies. Shake gently. Before first use, prime pump. After use, clean tip and replace cap. 16 mL 2 4 Active loratadine (Claritin) 10 MG tablet TAKE 1 TABLET BY MOUTH EVERY DAY NEEDED FOR ALLERGIES (NOT COVERED) 30 tablet 11 5 Active Active Problems Problem Noted Date Diagnosed Date Cervical cancer screening 03/07/2024 Assessment & Plan (03/07/2024 11:37 AM EST): 58 y.o. here for cervical cancer screening. Will continue monitoring following ASCCP guidelines. Pt declined Covid booster today. 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 MED & PEDS [address] [place] [address] Asya Pillai MD No Show 08/22/2024 Telephone [facility] CHC MED & PEDS [address] [place] [address] Asya Pillai MD Chart Prep 08/07/[address] [facility] MED & PEDS [address] [place] [address] Asya Pillai MD Nurse Triage 07/07/2024 Population Health Risk Score [facility] (C3) Department [address] [phone] Provider, Population Health Generic 06/05/2024 Refill [facility] [address] [facility] [place] [address] Asya Pillai MD 06/02/2024 Telephone [facility] MEDICINE [address] [address] Asya Pillai MD Nurse Triage from Last 3 Months Immunizations Name Administration [...] Postponed from 12/26/2023 (Patient Refused) COVID-19 Vaccine ( season) 2025 10/06/2020, 09/14/2020 Postponed from 12/26/2023 [...] 11:48 AM EST 03/08/2024 11:00 AM EST Narrative [facility] - 03/31/2024 11:22 AM EST ----- ------- Name: Milly Zavaleta ? Age/Sex: 58/F ? : 1965 Unit#: [id number] ?? Attend Dr: Ariela Mauricio MD ?Re03/07/24 ?Status: DEP REF ? Location: HO.HHCLNP ? Disch: ? ----- ------- SPEC : [id number] ?RECD: 03/08/24-1100 ? STATUS: ??SOUT ? REQ NUM: [id number] ? JODIE: 03/07/24-1148 ? SUBM DR: Ariela Mauricio MD ? ENTERED: ??03/08/24-1120 ?SP TYPE: Pap Smr ?KINGA MONTENEGRO: ? ORDERED: ??Pap Smear ?Addendum Addendum ??1 ?Entered: 03/31/24 HPV High Risk: ??Negative HPV Genotyping 16: [...] Mauricio MD LAB CYTOLOGY ORDERABLES Final Result [facility] [address] [place] [phone] * (ABNORMAL) Lipid Panel, Standard (06/25/2023 1:49 PM EST) Triglycerides 79 <150 mg/dL [facility] Comment:Desirable Triglyceri de: less than 150 mg/dLBorderline High Triglyceride 150-199 mg/dLHigh Triglyceride: 200-499 mg/dLVery High Triglyceride: greater than or equal to 5OO mg/dL Cholesterol 162 <200 mg/dL [facility] Comment:Desirable Cholestero l: less than 200 mg/dLBorderline High Cholesterol: 200-239 mg/dLHigh Cholesterol: greater than 239 mg/dL LDL Cholesterol Calculated 108(H) <100 mg/dL [facility] Comment:Desirable LDL: less than 100 mg/dLNear Optimal/Above Optimal LDL: 110- 129 mg/dLBorderline High LDL: 130-159 mg/dLHigh LDL: 160-189 mg/dLVery High LDL: greater than or equal to 190 mg/dL HDL Cholesterol 39(L) >40 mg/dL [facility] Comment:Desirable HDL: great er than 40 mg/dL Note: This HDL assay may give artificially low results in patients with liver disease. 06/25/2023 1:49 PM EST 06/25/2023 5:34 PM EST us Asya Pillai MD LAB BLOOD ORDERABLES Final Resul t [facility] [address] [place] [phone] * 3D DIGITAL REYNOLD SCR MAMMO [...] Procedure: 3D DIGITAL REYNOLD SCR MAMMO 1 Historical Provider IMG BI PROCEDURES Final R esult from Last 3 Months or Most Recently Relevant to Health Maintenance Insurance [facility] C3 Care Teams Cloth Colors Examiner Relationship Specialty Start Date End Date Asya Pillai MD [address] [place] [phone] PCP - General Family Medicine 09/04/19 Cr Ellington MD [address] [place] [address] Rheumatology 04/02/24 [facility] 03/10/24 Charles Kennedy MD [address] [place] [id number] Nephrology 04/02/24
--- OUTSIDE RECORDS SUMMARY | 2024-08-28 16:07 | XMS_ITS | Clinical Summary ---
Author Organization [facility] Address [address] [place] [phone] Phone Care Team Providers Care Dinkey Locomotive Engineer Name Role Phone Asya Pillai MD Primary Care Provider [phone] Allergies Active Allergy Reactions Criticality Noted Date [...] NEEDED, SWALLOW WHOLE. DO NOT BREAK/CRUSH/D ISSOLVE/CHEW 12/25/19 23 Active cholecalciferol (VITAMIN D-3) 50 MCG (2000 UT) capsule TAKE 1 CAPSULE BY MOUTH EVERY DAY 90 capsule 1 05/10/19 25 Active Sodium Zirconium Cyclosilicate 10 g packIndications: Stage 5 chronic kidney disease (HCC) Take 1 Package by mouth 3 (three) times a week 36 each 3 08/03/19 25 2024 Active sodium bicarbonate 650 MG tablet Take 1 tablet (650 mg total) by mouth in the morning and 1 tablet (650 mg total) in the evening. 180 tablet 2 08/03/19 25 2025 Active folic acid (FOLVITE) 1 MG tablet Take 1 tablet (1 mg total) by mouth 1 (one) time each day 90 tablet 3 08/03/19 25 2025 Active ferrous sulfate 325 (65 Fe) MG EC tablet TAKE 1 TABLET BY MOUTH 1 TIME EACH DAY WITH BREAKFAST DO NOT CRUSH, CHEW, OR SPLIT. 90 tablet 1 08/22/19 25 Active folic acid (FOLVITE) 1 MG tablet Take 1 tablet (1 mg total) by mouth 1 (one) time each day 90 tablet 3 03/17/20 24 2024 Discontinued(R eorder (does not appear on AVS)) ferrous sulfate (Fe Tabs) 325 (65 Fe) MG EC tablet Take 1 tablet (325 mg total) by mouth 1 (one) time each day with breakfast Do not crush, chew, or split. 30 tablet 5 03/17/20 24 2024 Discontinued Sodium Zirconium Cyclosilicate 10 g packIndications: Stage 5 chronic kidney disease (HCC) Take 1 Package by mouth 3 (three) times a week 36 each 3 03/29/20 24 2024 Discontinued(R eorder (does not appear on AVS)) sodium bicarbonate 650 MG tablet Take 1 tablet (650 mg total) by mouth in the morning and 1 tablet (650 mg total) in the evening and 1 tablet (650 mg total) before bedtime. 270 tablet 06/29/192024 Discontinued(R eorder (does not appear on AVS)) Active Problems [...] evaluate for continued stability, per report from [facility] CT pelvic/abdo dated 06/09/13 Noncompliance with treatment 08/19/2021 08/11/2022 Uterine leiomyoma 08/19/2021 08/11/2022 Vertigo 03/26/2015 08/11/2022 Allergic rhinitis, cause unspecified 01/18/2007 08/11/2022 Overview (08/05/2022): 10/01 ct sinus minimal changes Encounters Date Type Department Care Team Description 08/20/2024 Refill [facility] [address] [place] [phone] Charles Kennedy MD 08/02/2024 4:15 PM EDT Office Visit [facility] [address] [place] [phone] Charles Kennedy MD Stage 5 chronic kidney disease (HCC) (Primary Dx); Hypertension; Proteinuria, not otherwise specified; Anemia in chronic kidney disease 06/29/2024 Refill [facility] [address] [phone] Genoveva Plata [place] 06/28/2024 Refill [facility] [address] [place] [address] Kendra Arroyo Stage 5 chronic kidney disease (HCC) from Last 3 Months Immunizations Immunization Administration Dates Next Due Influenza, Quadrivalent, Wit [...] Sign Reading Time Taken Comments Blood Pressure 136/82 08/02/2024 3:31 PM EDT Pulse 91 08/02/2024 3:31 PM EDT Temperature - - Respiratory Rate - - Oxygen Saturation 100% 03/31/2023 3:09 PM EST Inhaled Oxygen Concentration - - Weight 61.2 kg (135 lb) 03/29/2024 2:43 PM EST Height 167.6 cm (5' 6 ) 05/27/2020 12:00 PM EST Body Mass Index 21.79 05/27/2020 12:00 PM EST Plan of Treatment Upcoming Encounters Date Type Department Care Team (Late st Contact Info) Description 10/02/2024 4:30 PM EDT Office Visit [facility] [address] [facility] [address] [place] [address] Charles Kennedy MD [address] [facility] [address] [place] [address] Health Maintenance Due Date Last Done Comments Breast Cancer Screening 1965 Hepatitis B Vaccine (1 of 3 - 19+ 3-dose series) 1984 Colorectal Cancer Screening: Annual FOBT 2014 Colorectal Cancer Screening: Colonoscopy 2014 Colorectal Cancer Screening: Sigmoidoscopy 2014 Pneumococcal Vaccine: 50+ Ye ars (2 of 2 - PCV) 02/27/2015 02/27/2014 Influenza Vaccine (Season Ended) 2024 03/15/2017, 02/27/2014, 03/06/2013, Additional history exists Pneumococcal Vaccine: Peds ( 0 to 5 Years) and At-Risk Patients (6 to 49 Years) Discontinued 02/27/2014 Procedures Procedure Name Priority Date/Time Associated Diagnosis Comments PHOSPHATE ( PHOSPHORUS) Routine 08/02/2024 4:44 PM EDT Stage 5 chronic kidney disease (HCC) IRON PANEL (FE, TIBC, TSAT) Routine 08/02/2024 4:43 PM EDT Stage 5 chronic kidney disease (HCC) FERRITIN Routine 08/02/2024 4:43 PM EDT Stage 5 chronic kidney disease (HCC) CBC Routine 08/02/2024 4:43 PM EDT Stage 5 chronic kidney disease (HCC) VITAMIN D 25 HYDROXY Routine 08/02/2024 4:43 PM EDT Stage 5 chronic kidney disease (HCC) PTH, INTACT Routine 08/02/2024 4:43 PM EDT Stage 5 chronic kidney disease (HCC) RENAL FUNCTION PANEL Routine 08/02/2024 4:43 PM EDT Stage 5 chronic kidney disease (HCC) from Last 3 Months Results * (ABNORMAL) Phosphorus (08/02/2024 4:44 PM EDT) Pathologist [facility] Phosphorus 5.3(H) 3.0 - 4.3 mg/dL [facility] Blood (Blood, Venous) 08/02/2024 4:44 PM EDT 08/02/2024 Charles Kennedy MD LAB BLOOD ORDERABLES Final Resul t Performing Organization Address [facility] Co de Phone Number [employer] [facility] [address] [place] [address] * (ABNORMAL) Iron Panel (Fe, TIBC, TSAT) (08/02/2024 4:43 PM EDT) Pathologist [facility] TIBC 200(L) 250 - 450 ug/dL [facility] UIBC 153 131 - 425 ug/dL [facility] Iron 47 27 - 159 ug/dL [facility] Iron Saturation (TSat) 24 15 - 55 % [facility] Blood (Blood, Venous) 08/02/2024 4:43 PM EDT 08/02/2024 Charles Kennedy MD LAB BLOOD ORDERABLES Final Resul t Performing Organization Address City[facility]/ZIP Co de Phone Number [facility] [employer] [facility] [address] [place] [address] * Vit D 25 hydroxy (08/02/2024 4:43 PM EDT) Pathologist [facility] Vitamin D, 25-OH, Total 36.3 30.0 - 100.0 ng/mL [facility] Comment: Vitamin D deficiency has been defined by the Heath of Medicine and an Endocrine Society practice guideline as a level of serum 25-OH vitamin D less than 20 ng/mL (1,2). The Endocrine Society went on to further define vitamin D insufficiency as a level between 21 and 29 ng/mL (2). 1. IOM (Heath of Medicine). 2010. Dietary reference ?? intakes for calcium and D. [place]: The ?? National AcademTegotech Software Press. 2. Alysa MF, Dong NC, Shira EDWARDS, et al. ?? Evaluation, treatment, and prevention of vitamin D ?? deficiency: an Endocrine Society clinical practice ?? guideline. JCEM. 2010; 96(7):1911-30. Blood (Blood, Venous) 08/02/2024 4:43 PM EDT 08/02/2024 Charles Kennedy MD LAB BLOOD ORDERABLES Final Resul t [facility] [address] [place] [address] * (ABNORMAL) CBC without diff (08/02/2024 4:43 PM EDT) WBC 4.3 3.4 - 10.8 x10E3/uL [facility] RBC 2.54(LL) 3.77 - 5.28 x10E6/uL [facility] Hemoglobin 7.4(L) 11.1 - 15.9 g/dL [facility] Hematocrit 22.4(L) 34.0 - 46.6 % [facility] MCV 88 79 - 97 fL [facility] MCH 29.1 26.6 - 33.0 pg [facility] MCHC 33.0 31.5 - 35.7 g/dL [facility] RDW 15.7(H) 11.7 - 15.4 % [facility] Platelets 244 150 - 450 x10E3/uL [facility] Blood (Blood, Venous) 08/02/2024 4:43 PM EDT 08/02/2024 us Charles Kennedy MD LAB BLOOD ORDERABLES Final Resul t Performing Organization Address [facility] Co de Phone Number [facility] [address] [place] [address] * (ABNORMAL) PTH, intact (08/02/2024 4:43 PM EDT) PTH 189(H) 15 - 65 pg/mL [facility] Blood (Blood, Venous) 08/02/2024 4:43 PM EDT 08/02/2024 us Charles Kennedy MD LAB BLOOD ORDERABLES Final Resul t Performing Organization Address [facility] Co de Phone Number [facility] [address] [place] [address] * (ABNORMAL) Ferritin (08/02/2024 4:43 PM EDT) Ferritin 854(H) 15 - 150 ng/mL [facility] Blood (Blood, Venous) 08/02/2024 4:43 PM EDT 08/02/2024 us Charles Kennedy MD LAB BLOOD ORDERABLES Final Resul t Performing Organization Address [facility] Co de Phone Number [facility] [address] [place] [address] * (ABNORMAL) Renal funtion panel (08/02/2024 4:43 PM EDT) Glucose 96 70 - 99 mg/dL [facility] BUN 75(H) 6 - 24 mg/dL [facility] Creatinine 6.78(H) 0.57 - 1.00 mg/dL [facility] eGFR CKD-EPI CR 2020 7(L) >59 mL/min/1.7 3 [facility] BUN/Creatinine Ratio 11 9 - 23 [facility] Sodium 138 134 - 144 mmol/L [facility] Potassium 5.4(H) 3.5 - 5.2 mmol/L [facility] Chloride 109(H) 96 - 106 mmol/L [facility] Calcium 8.6(L) 8.7 - 10.2 mg/dL [facility] Phosphorus 5.3(H) 3.0 - 4.3 mg/dL [facility] Albumin 4.2 3.8 - 4.9 g/dL [facility] Bicarbonate (CO2) 12(L) 20 - 29 mmol/L [facility] Comment:Verified by repeat analysis Blood (Blood, Venous) 08/02/2024 4:43 PM EDT 08/02/2024 us Charles Kennedy MD LAB BLOOD ORDERABLES Final Resul t [facility] [address] [place] [address] from Last 3 Months [place] Care Teams Dinkey Locomotive Engineer Relationship Specialty Start Date End Date Asya Pillai MD [address] [place] [phone] PCP - General 05/06/20
--- OUTSIDE RECORDS SUMMARY | 2024-08-28 16:07 | XMS_ITS | Encounter Summary ---
Author Organization [employer] Address [address] [facility] 7[address] [place] [address] Care Team Providers Care Feed Grinder Name Role Phone Asya Pillai MD Primary Care Provider [phone] Cr [place] MD Unavailable Encounter Details Date Type Department Care Team ([facility] st Contact Info) Description 03/10/2024 Telephone [facility] [address] [place] [address] Asya Pillai MD [address] [place] [address] Social History Tobacco Use Types Packs/Day Years [...] from pt requesting a HDF appt. Hospital: [facility] Date of admission: 03/07 Discharge date: 03/09 Diagnosed: Low Blood levels Contact pt at [phone] *Send message to [place] Clinical Care Coordinators documented in this encounter Plan of Treatment Not on file documented as of this encounter Visit Diagnoses Not on filedocumented in this encounter Care Teams Feed Grinder Relationship Specialty Start Date End Date Asya Pillai MD [address] [place] [address] PCP - General Family Medicine 09/04/19 Cr Ellington MD [address] [place] [phone] Rheumatology 04/02/24 [facility] 03/10/24 Charles Kennedy MD [address] [place] [phone] Nephrology 04/02/24 documented as of this encounter
--- OUTSIDE RECORDS SUMMARY | 2024-08-28 16:07 | XMS_ITS | Encounter Summary ---
Author Organization [employer] Address [address] [facility] 7[address] [place] [address] Care Team Providers Care Guest Services Coordinator Name Role Phone Asya Pillai MD Primary Care Provider [phone] Cr Ellington MD Unavailable Reason for Visit * Reason Onset Date Comments Appointment Request 01/25/2024 Encounter Details Date Type Department Care Team ([facility] st Contact Info) Description 01/25/2024 Telephone [facility] [address] [place] [address] Asya Pillai MD [address] [place] [address] Appointment Request Social History Tobacco Use Types [...] call back to reschedule and 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
--- OUTSIDE RECORDS SUMMARY | 2024-08-28 16:07 | XMS_ITS | Encounter Summary ---
Author Organization [employer] Address [address] [facility] 7[address] [place] [address] Care Team Providers Care Property Technician Name Role Phone Asya Pillai MD Primary Care Provider [phone] Cr Ellington MD Unavailable Reason for Visit * Reason Onset Date Comments Pre-op Visit 11/01/2023 Encounter Details Date Type Department Care Team ([facility] st Contact Info) Description 11/01/2023 Telephone [facility] [address] [place] [address] Asya Pillai MD [address] [place] [address] Pre-op Visit Social History Tobacco Use Types [...] Call also placed to pt . No pick out hand butleft a detailed message regarding upcoming visit . Anupama advised that she will fax over last office notes , and what is needed for pre-op . Date of Surgery: 12/12 Surgical procedure being done: Left Total Knee Replacement Type of anesthesia: Spinal and nerve block Lab needed: Yes EKG: Yes Surgeon's name: Dr Austin Howell Facility name: [facility] Surgeon's office number: [phone] Surgeon's office fax number: [phone] Contact name; Anupama Last office note from surgeon requested: Yes * Telephone Encounter - Mellisa Ulrich - 11/01/2023 8:50 AM EDT Date of Surgery: 12/12 Surgical procedure being done: Left Total Knee Replacement Type of anesthesia: Spinal and nerve block Lab needed: Yes EKG: Yes Surgeon's name: Dr Austin Howell Facility name: [facility] Surgeon's office number: [phone] Surgeon's office fax number: [phone] Contact name; Anupama Last office note from surgeon requested: Yes documented in this encounter Plan of Treatment Not on file documented as of this encounter Visit Diagnoses Not on filedocumented in this encounter Care Teams Property Technician Relationship Specialty Start Date End Date Asya Pillai MD [address] [place] [address] PCP - General Family Medicine 09/04/19 Cr Ellington MD [address] [place] [phone] Rheumatology 04/02/24 [facility] 03/10/24 Charles Kennedy MD [address] [place] [phone] Nephrology 04/02/24 documented as of this encounter
== END 2024-08-28 15:17 | disposition home or self-care (01) ==
LOC: HO.HOS 14:35
PROVIDERS: Visit Provider Orthopaedic Surgery
DX: M17.12 Unilateral primary osteoarthritis, left knee (principal)
CPT/HCPCS: 99214

== ENCOUNTER → 2024-08-28 14:34 | Outpatient (BNVA) | payer MEDICAID, SELFPAY | PROVIDERS: Visit Provider Orthopaedic Surgery | DX: M17.12 Unilateral primary osteoarthritis, left knee (principal) | CPT/HCPCS: 99212 ==